=== PATIENT | female | born 1940 | race Caucasian/White ===

== ENCOUNTER → 2016-04-22 | Outpatient (CLI) | payer BC ==
[~2016-04-22] MED LIST: ACET-1256 PO; MULT-506 PO; NAPR1TAB9 PO; SYN100 PO
[2016-04-22 11:00] LABS: BASO % 0.3 %; BASO ABS # 0.02 K/uL (0-0.2); COMPLETE YES; EOS % 7.1 %; HEMATOCRIT 41.7 % (37-47); IG% 0.3 %; LYMPH % 30.7 %; LYMPH ABS # 1.85 K/uL (1.2-3.4); MEAN CORPUSCULAR HEMOGLOBIN 30.3 pg (25-34); MEAN CORPUSCULAR HGB CONC 35.3 g/dl (32-36); MEAN PLATELET VOLUME 12.2 fL (7.4-10.4); NEUT % 52.6 %; PLATELET COUNT 223 K/uL (130-400); RED BLOOD COUNT 4.85 M/uL (4.2-5.4); WHITE BLOOD COUNT 6.03 K/uL (4.8-10.8)
[2016-04-22 11:10] LABS: ALT/SGPT 34 U/L (12-78); AST/SGOT 24 U/L (15-37); BLOOD UREA NITROGEN 23 mg/dl (7-18); BUN/CREATININE RATIO 20.6 (10-20); CALCIUM 8.7 mg/dl (8.5-10.1); CARBON DIOXIDE 26 mmol/L (21-32); CHLORIDE 108 mmol/L (98-107); CHOLESTEROL 250 mg/dl (0-200); GLUCOSE 112 mg/dl (70-99); POTASSIUM 4.2 mmol/L (3.5-5.1); SODIUM 144 mmol/L (136-145)
[2016-04-22 11:24] LABS: ALB/GLOB RATIO 1.2 (0.9-2); ALKALINE PHOSPHATASE 75 U/L (45-117); CHOLESTEROL/HDL RATIO 4.3; HDL CHOLESTEROL 58 mg/dl; LDL CHOLESTEROL CALCULATED 163 mg/dl; THYROID STIMULATING HORMONE 0.606 uIu/ml (0.300-4.500); TRIGLYCERIDES 143 mg/dl (0-150); VERY LOW DENSITY LIPOPROT CALC 29 mg/dl
== END | disposition home or self-care (01) ==
LOC: C.LABBC 08:21
PROVIDERS: ATTEND Internal Medicine
DX: I10 Essential (primary) hypertension (principal); E03.9 Hypothyroidism, unspecified; R26.9 Unspecified abnormalities of gait and mobility

== ENCOUNTER → 2016-08-29 | Outpatient (CLI) | payer BC ==
[2016-08-29 12:43] LABS: ESTIMATED AVERAGE GLUCOSE 108 mg/dl; HA1C FLAG Normal (Normal)
[2016-08-29 13:56] LABS: BLOOD UREA NITROGEN 28 mg/dl (7-18); BUN/CREATININE RATIO 27.9 (10-20); CALCIUM 9.5 mg/dl (8.5-10.1); CARBON DIOXIDE 28 mmol/L (21-32); CHLORIDE 106 mmol/L (98-107); GLUCOSE 102 mg/dl (70-99); POTASSIUM 4.6 mmol/L (3.5-5.1); SODIUM 141 mmol/L (136-145)
== END | disposition home or self-care (01) ==
LOC: C.LAB1850 10:25
PROVIDERS: ATTEND Internal Medicine
DX: I10 Essential (primary) hypertension (principal); R73.9 Hyperglycemia, unspecified

== ENCOUNTER → 2016-09-12 | Outpatient (CLI) | payer BC | END | disposition home or self-care (01) | LOC: C.MAMM 10:22 | PROVIDERS: ATTEND Internal Medicine | DX: Z13.820 Encounter for screening for osteoporosis (principal); M85.851 Other specified disorders of bone density and structure, right thigh ==

== ENCOUNTER → 2016-11-16 | Outpatient (CLI) | payer BC ==
--- NOTE | 2016-11-16 09:06 | DIAGNOSTIC IMAGING REPORT ---
STANDING RADIOGRAPHS OF THE LEFT FOOT CLINICAL HISTORY: Medial left foot pain. COMPARISON: None FINDINGS: Tarsometatarsal joints are intact. There is no acute fracture within the left foot. No suspicious osseous lesion is present. There is moderate arthritis of the left first metatarsophalangeal joint. There is mild left midfoot arthritis within multiple articulations. There is minimal posterior plantar calcaneal spurring. No erosions are identified. IMPRESSION: 1. No acute fracture or dislocation within the left foot. 2. 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 Electronically signed by: Sunil Mesa M.D. 11/16/2016 9:05 AM Dictated Date/Time: 11/16/2016 9:03 AM
== END | disposition home or self-care (01) ==
LOC: C.RDSM 08:47
PROVIDERS: ATTEND Podiatrist
DX: M19.072 Primary osteoarthritis, left ankle and foot (principal)

== ENCOUNTER → 2016-11-23 | Outpatient (CLI) | payer BC ==
--- NOTE | 2016-11-23 13:16 | DIAGNOSTIC IMAGING REPORT ---
CHEST 2 VIEWS ROUTINE CLINICAL HISTORY: Acute upper respiratory infection. COMPARISON STUDY: Chest radiograph June 18, 2007. FINDINGS: Anterior cervical spine fusion is incidentally noted. Lung volumes are normal. Lungs are clear. No pneumothorax or pleural effusion is present. Cardiomediastinal silhouette is normal. There is no evidence of pulmonary edema. There are cholecystectomy clips. IMPRESSION: No acute cardiopulmonary findings. Electronically signed by: Sunil Mesa M.D. 11/23/2016 1:15 PM Dictated Date/Time: 11/23/2016 1:14 PM
[2016-11-23 13:22] LABS: BASO % 0.3 %; BASO ABS # 0.02 K/uL (0-0.2); COMPLETE YES; EOS % 3.2 %; HEMATOCRIT 40.3 % (37-47); IG% 0.3 %; LYMPH ABS # 1.85 K/uL (1.2-3.4); MEAN CELL VOLUME 88.2 fL (80-100); MEAN CORPUSCULAR HEMOGLOBIN 30.6 pg (25-34); MEAN CORPUSCULAR HGB CONC 34.7 g/dl (32-36); MEAN PLATELET VOLUME 11.7 fL (7.4-10.4); MONO % 8.8 %; NEUT % 62.4 %; PLATELET COUNT 277 K/uL (130-400); RED BLOOD COUNT 4.57 M/uL (4.2-5.4); WHITE BLOOD COUNT 7.39 K/uL (4.8-10.8)
[2016-11-23 13:52] LABS: BLOOD UREA NITROGEN 33 mg/dl (7-18); BUN/CREATININE RATIO 27.8 (10-20); CALCIUM 9.1 mg/dl (8.5-10.1); CARBON DIOXIDE 28 mmol/L (21-32); CHLORIDE 104 mmol/L (98-107); GLUCOSE 103 mg/dl (70-99); POTASSIUM 3.8 mmol/L (3.5-5.1); SODIUM 140 mmol/L (136-145)
[2016-11-27 12:05] LABS: LEGIONELLA ANTIGEN NOT DETECTED (NOT DETECTED)
== END | disposition home or self-care (01) ==
LOC: C.RAD1850 12:04
PROVIDERS: ATTEND Internal Medicine
DX: J06.9 Acute upper respiratory infection, unspecified (principal)

== ENCOUNTER → 2016-11-23 | Outpatient (CLI) | payer BC ==
--- NOTE | 2016-11-23 16:56 | DIAGNOSTIC IMAGING REPORT ---
L LOWER EXT NONJOINT W/O CLINICAL HISTORY: 76 years-old Female presenting with left medial foot pain for over one year, no known injury, marker on region of interest, posterior tibial tendinitis, midfoot arthritis. TECHNIQUE: Multisequence, multiplanar MR imaging of the left foot was performed without the use of intravenous contrast. IV contrast: None. COMPARISON: Correlation made to plain radiographs of the left foot from 11/16/2016. FINDINGS: Localizer images: Unremarkable. Degenerative changes of the first metatarsophalangeal joint evidenced by osteophytosis. Trace cystic change noted along the medial juxta articular cortex. Joint space loss noted. No acute fracture. Extensor and flexor compartments demonstrate normal muscle bulk and signal intensity. No abnormal thickening of the plantar fascia. Achilles tendon normal in appearance. No significant infiltration of Kager fat pad. Limited imaging of the ankle demonstrates intact ankle mortise and supporting ligamentous structures. Posterior compartment tendons demonstrate normal tibialis posterior and flexor digitorum longus. Minimal fluid along the tendon of the flexor hallucis longus at the level of the sustentaculum aster. Minimal bony edema along the posterior medial aspect of the medial cuneiform at the insertion of the tibialis anterior. The distal tibialis anterior tendon is slightly thickened and increased in signal intensity suggesting tendinosis. Remaining anterior tendons normal. No focal fluid collection or subcutaneous edema. IMPRESSION: 1. Findings suggestive of tendinosis of the tibialis anterior with minimal reactive bony edema in the medial cuneiform insertion site. 2. Possible minimal tendinitis of the flexor hallucis longus subjacent to the sustentaculum aster. 3. Degenerative changes of the first metatarsophalangeal joint. Electronically signed by: Juan Manuel Valadez M.D. 11/23/2016 4:55 PM Dictated Date/Time: 11/23/2016 4:39 PM
== END | disposition home or self-care (01) ==
LOC: C.MRIBC 15:18
PROVIDERS: ATTEND Podiatrist
DX: M76.822 Posterior tibial tendinitis, left leg (principal); M19.072 Primary osteoarthritis, left ankle and foot; J06.9 Acute upper respiratory infection, unspecified

== ENCOUNTER → 2017-02-08 | Outpatient (CLI) | payer BC ==
--- NOTE | 2017-02-08 14:54 | DIAGNOSTIC IMAGING REPORT ---
R VENOUS DOPP LOWER EXT UNILAT CLINICAL HISTORY: R LEG SWELLING pain. Edema. TECHNIQUE: Venous Doppler COMPARISON STUDY: None FINDINGS: Normal study IMPRESSION: Normal study The above report was generated using voice recognition software. It may contain grammatical, syntax or spelling errors. Electronically signed by: Madhu Andrew M.D. 02/08/2017 2:53 PM Dictated Date/Time: 02/08/2017 2:51 PM
== END | disposition home or self-care (01) ==
LOC: C.ULTR 14:03
PROVIDERS: ATTEND Nurse Practitioner Adult Health
DX: M79.89 Other specified soft tissue disorders (principal)

== ENCOUNTER → 2017-03-14 | Outpatient (CLI) | payer BC ==
--- NOTE | 2017-03-14 12:06 | DIAGNOSTIC IMAGING REPORT ---
L HIP UNILATERAL 2 VIEWS CLINICAL HISTORY: R26.9 Gait disturbance pain COMPARISON: None. DISCUSSION: Moderate degenerative narrowing left hip joint space. No evidence for acetabular protrusion. Several small subchondral cysts of the femoral head and to a lesser extent acetabulum. No abnormal soft tissue calcifications. There is no evidence for soft tissue swelling. IMPRESSION: Moderate degenerative change. No acute process. The above report was generated using voice recognition software. It may contain grammatical, syntax or spelling errors. Electronically signed by: Madhu Andrew M.D. 03/14/2017 12:05 PM Dictated Date/Time: 03/14/2017 12:04 PM
--- NOTE | 2017-03-14 13:28 | DIAGNOSTIC IMAGING REPORT ---
LUMBAR SPINE 5 VIEWS CLINICAL HISTORY: Gait disturbance. FINDINGS: Five views of the lumbar spine are correlated with MRI of lumbar spine dated 03/01/2012. The skeletal structures are osteopenic. There is no radiographic evidence of acute fracture or malalignment. Vertebral body height is maintained throughout the lumbar spine. There is 9 mm of anterolisthesis at L4-L5. Alignment is otherwise preserved. Anterior osteophytes are seen throughout. The transverse and spinous processes appear intact. Bilateral pars defects are suspected at L4. Advanced facet arthropathy is seen in the mid to lower lumbar region. There is advanced disc space narrowing at L5-S1. Moderate disc space narrowing is seen at L4-L5. Mild disc space narrowing is present at the remaining lumbar levels. The bony pelvis is intact as visualized. Sclerotic change is noted in the left sacroiliac joint. Cholecystectomy clips are noted. There is a nonobstructed abdominal bowel gas pattern noting mild to moderate colonic fecal retention. Atherosclerotic calcification is noted in the abdominal aorta. IMPRESSION: 1. No acute bony abnormality is seen involving the lumbar spine. 2. There is Grade I anterolisthesis at L4-L5, likely secondary to bilateral pars defects at L4. 3. Osteopenia and spondylotic change as above. Dictated: 03/14/2017 12:57 PM Transcribed: 03/14/2017 1:28 PM Freddy Electronically signed by: Rojelio Car M.D. 03/14/2017 1:28 PM Dictated Date/Time: 03/14/2017 12:57 PM
== END | disposition home or self-care (01) ==
LOC: C.RAD1850 11:46
PROVIDERS: ATTEND Internal Medicine
DX: R26.9 Unspecified abnormalities of gait and mobility (principal)

== ENCOUNTER → 2017-03-21 | Outpatient (CLI) | payer BC ==
--- NOTE | 2017-03-21 13:00 | DIAGNOSTIC IMAGING REPORT ---
MRI OF THE LUMBAR SPINE WITHOUT CONTRAST CLINICAL HISTORY: Back pain with left-sided radiculopathy. COMPARISON STUDY: Lumbar spine MRI March 01, 2012 and lumbar spine radiograph March 14, 2017. TECHNIQUE: Utilizing a 1.5 Jenn magnet and dedicated coil, multiplanar, multiecho imaging of the lumbar spine was performed without IV contrast. FINDINGS: For purposes of numbering on this exam, the L5-S1 disc space is assigned to axial image 06/22/2016. There is 7 mm anterolisthesis of L4 and L5, likely due to facet arthrosis. No suspicious marrow replacement is present. There is no lumbar spine compression fracture. There is no intracanalicular mass or fluid collection. There is mild dextroscoliosis of the lumbar spine. Conus terminates at the mid L1 level. There are bilateral parapelvic cysts. L1-2: Disc bulge is noted with facet arthrosis. There is no significant central canal or neural foraminal stenosis. L2-3: There is disc space narrowing with facet arthrosis and ligamentous surgery. The central canal, lateral recesses and neural foramen are patent. L3-4: There is mild disc bulge with extensive ligamentous hypertrophy and facet arthrosis. There is moderate narrowing of the right aspect of the canal predominantly due to ligamentous hypertrophy. There is mild narrowing of the left lateral recess and moderate narrowing of the right lateral recess with mild bilateral neural foraminal stenosis. L4-5: There is grade I anterolisthesis with uncovering of the disc, ligamentous hypertrophy and facet arthrosis that result in severe narrowing of the central canal and lateral recesses with mild narrowing of the right neural foramen and mild narrowing of the left neural foramen. These findings have progressed since exam of February 22, 2012. L5-S1: There is disc space narrowing with disc bulge. There are facet arthrosis. The central canal is patent. There is mild during of both lateral recesses with severe narrowing of the right neural foramen and mild narrowing of the left neural foramen. IMPRESSION: 1. Severe central canal stenosis at L4-L5 due to grade I anterolisthesis, ligamentous hypertrophy and facet arthrosis. This has progressed since exam March 01, 2012. 2. Moderate narrowing of the right aspect of the central canal at the L3-L4 level. 3. Severe right neural foraminal stenosis at L5-S1. Electronically signed by: Sunil Mesa M.D. 03/21/2017 12:58 PM Dictated Date/Time: 03/21/2017 12:51 PM
== END | disposition home or self-care (01) ==
LOC: C.MRI 10:39
PROVIDERS: ATTEND Internal Medicine
DX: M48.061 Spinal stenosis, lumbar region without neurogenic claudication (principal); M47.26 Other spondylosis with radiculopathy, lumbar region; M43.16 Spondylolisthesis, lumbar region; M21.70 Unequal limb length (acquired), unspecified site; R26.89 Other abnormalities of gait and mobility; R20.0 Anesthesia of skin; R93.7 Abnormal findings on diagnostic imaging of other parts of musculoskeletal system

== ENCOUNTER → 2017-05-23 | Day surgery (SDC) | payer BC ==
[2017-04-27 09:22] VITALS: Ht 172.7 cm; Wt 85.0 kg
[~2017-05-23] VITALS: Ht 172.7 cm; Wt 85.0 kg
[~2017-05-23] MED LIST changes: -ACET-1256 PO; +CHOL20007 PO; +HYDR25TA4 PO; +IOPAMIDOL INJ 61% 15 ML VIAL ONE; +LEVO100T7 PO; +LIDOCAINE HCL 1% MPF 5 ML VIAL ONE; +OMEG10007 PO; +SODIUM CHLORIDE 0.9% INJ 10 ML VIAL ONE; -SYN100 PO
--- NOTE | 2017-05-23 14:16 | History & Physical Bridge - SC ---
H&P Re-Evaluation Bridge Note: I have examined the patient, reviewed the History & Physical and in the interval since the performance of the History & Physical I have noted the following changes of clinical significance: No changes noted
--- NOTE | 2017-05-23 14:38 | [facility] Post Operative Brief Note ---
Immediate Operative Summary Operative Date May 23, 2017. 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 Katty JONAS Grocery Cashier Surgeon(s) NONE Estimated Blood Loss NONE Findings Consistent with Post-Op Diagnosis Specimens NA Drains None Anesthesia Type Local Complication(s) none Disposition Disposition:
--- NOTE | 2017-05-23 14:39 | Discharge Instructions ---
Discharge Instructions Date of Service May 23, 2017. Visit Reason for Visit: Lumbar Radiculopathy Discharge Discharge Diagnosis / Problem: Left leg pain Discharge Goals Goal(s): Decrease discomfort, Improve function Medications Stopped Medications Name(s): see anticoag comment Activity Recommendations Activity Limitations: resume your previous activity Anesthesia . Post Anesthesia Instructions: If you have had General Anesthesia or IV Sedation: * Do not drive today. * Resume driving when surgeon permits. * Do not make important decisions or sign legal documents today. * Call surgeon for: 1. Temperature elevations greater than 101 degrees F. 2. Uncontrollable pain. 3. Excessive bleeding. 4. Persistent nausea and vomiting. 5. Medication intolerance (nausea, vomiting or rash). * For nausea and vomiting use only clear liquids such as: tea, soda, bouillon until nausea subsides, then gradually increase diet as tolerated. * If you have any concerns or questions, call your surgeon's office. If physician is unavailable and it is an emergency, call 911 or go to the nearest emergency room. . Diet Recommendations Recommended Home Diet: resume previous diet Procedures Procedures Performed: LUMBAR EPIDURAL STEROID INJECTION Pending Studies Studies pending at discharge: no Medical Emergencies . Who to Call and When: Medical Emergencies: If at any time you feel your situation is an emergency, please call 911 immediately. . Non-Emergent Contact Non-Emergency issues call your: Specialist . . "Provider Documentation" section prepared by Morgan Saravia. .
[2017-05-23 14:40] VITALS: TEMP 36.6
[2017-05-23 15:02] VITALS: BP 128/73; PULSE 85; O2SAT 96
--- NOTE | 2017-05-23 15:20 | OPERATIVE REPORT ---
DATE OF OPERATION: 05/23/2017 PREOPERATIVE DIAGNOSIS: Multifactorial L4-L5 stenosis secondary to grade 1 L4-L5 spondylolisthesis with a resulting left lower extremity radiculopathy. POSTOPERATIVE DIAGNOSIS: Same. PROCEDURE: Left paramedian L5-S1 interlaminar epidural steroid injection under fluoroscopic guidance. INDICATIONS: The patient is a 77-year-old white female who is having problems with radicular pain and presents today for an epidural injection to help her with the pain. She has responded somewhat to physical therapy and prednisone medication taper but still has functionally limiting pain. PHYSICAL EXAMINATION: Pleasant female, seated comfortably. She has no issues with forward flexion or extension. Negative seated straight leg raises, intact sensation. CONSENT: Verbal and written consent was obtained from the patient. Risks and benefits were reviewed. Risks include but are not limited to epidural abscess, epidural hematoma, allergic reaction, dural puncture. The patient wishes to proceed. PROCEDURE IN DETAIL: The patient was taken back to the special procedures room of the [facility] where she was maintained in a prone position. Backside was cleansed with Betadine x3 and a dry sterile dressing was applied. Fluoroscope was used to identify the L5-S1 interlaminar space. Overlying skin on the left side was anesthetized with 4 mL of lidocaine 1% with a 25-gauge 1-1/2-inch needle. A 22-gauge 3-1/2-inch Tuohy needle was then directed down toward the interlaminar space. It was advanced under lateral fluoroscopic guidance. Loss of resistance was noted at a depth of 7.5 cm. Isovue-300 contrast 1 mL was injected which demonstrated epidural uptake pattern. She then underwent injection after negative aspiration of 40 mg Depo-Medrol and 4 mL of preservative-free sodium chloride. Injection was well tolerated. DISPOSITION: 1. The patient is taken out into the discharge recovery area where she will be discharged home once discharge criteria have been met. 2. Follow up in the [facility] office in 4 weeks' time. I attest to the content of the Intraoperative Record and any orders documented therein. Any exception s are noted below.
== END | disposition home or self-care (01) ==
LOC: X.SURG 13:20
PROVIDERS: ATTEND Physical Medicine & Rehabilitation
DX: M48.061 Spinal stenosis, lumbar region without neurogenic claudication (principal); M43.16 Spondylolisthesis, lumbar region; M54.16 Radiculopathy, lumbar region; I10 Essential (primary) hypertension; E03.9 Hypothyroidism, unspecified

== ENCOUNTER → 2017-10-12 | Day surgery (SDC) | payer BC ==
[2017-10-02 09:53] VITALS: Ht 172.7 cm; Wt 86.8 kg
[~2017-10-12] VITALS: Ht 172.7 cm; Wt 86.8 kg
[~2017-10-12] MED LIST changes: +DEXAMETHASONE SOD INJ 4 MG/ML VIAL ONE; +GABA-112 PO; -IOPAMIDOL INJ 61% 15 ML VIAL ONE; +PRT/20 PO; -SODIUM CHLORIDE 0.9% INJ 10 ML VIAL ONE
--- NOTE | 2017-10-12 07:51 | Discharge Instructions-SurgCtr ---
Discharge Instructions Date of Service Oct 12, 2017. Visit Reason for Visit: Spinal Stenosis Discharge Discharge Diagnosis / Problem: same Discharge Goals Goal(s): Improve function Activity Recommendations Activity Limitations: resume your previous activity Anesthesia . Post Anesthesia Instructions: If you have had General Anesthesia or IV Sedation: * Do not drive today. * Resume driving when surgeon permits. * Do not make important decisions or sign legal documents today. * Call surgeon for: 1. Temperature elevations greater than 101 degrees F. 2. Uncontrollable pain. 3. Excessive bleeding. 4. Persistent nausea and vomiting. 5. Medication intolerance (nausea, vomiting or rash). * For nausea and vomiting use only clear liquids such as: tea, soda, bouillon until nausea subsides, then gradually increase diet as tolerated. * If you have any concerns or questions, call your surgeon's office. If physician is unavailable and it is an emergency, call 911 or go to the nearest emergency room. . Diet Recommendations Home Diet: no limitations Procedures Procedures Performed: L-45 Epidural Steroid Injection Pending Studies Studies pending at discharge: no Medical Emergencies . Who to Call and When: Medical Emergencies: If at any time you feel your situation is an emergency, please call 911 immediately. . Non-Emergent Contact Non-Emergency issues call your: Primary Care Provider . . "Provider Documentation" section prepared by Mike Hernandez. .
--- NOTE | 2017-10-12 07:52 | [facility] Post Operative Brief Note ---
Immediate Operative Summary Operative Date Oct 12, 2017. Pre-Operative Diagnosis SPINAL STENOSIS Post-Operative Diagnosis SAME PREOP Procedure(s) Performed L-45 Epidural Steroid Injection Surgeon DR. Linda WALTER Supervisor Dairy Sanitation Surgeon(s) NONE Estimated Blood Loss 0 ML Findings Consistent with Post-Op Diagnosis Specimens NONE Anesthesia Type MAC
[2017-10-12 07:59] VITALS: TEMP 36.7
[2017-10-12 08:09] VITALS: BP 133/76; PULSE 71; O2SAT 97
--- NOTE | 2017-10-12 09:10 | OPERATIVE REPORT ---
DATE OF OPERATION: 10/12/2017 PREOPERATIVE DIAGNOSIS: Stenosis and listhesis 4-5 lumbar. POSTOPERATIVE DIAGNOSIS: Same. PROCEDURE: Epidural steroid 4-5 lumbar. DESCRIPTION OF PROCEDURE: The patient was taken to the minor procedure room and placed prone, prepped and draped sterile. The 22-gauge Tuohy needle advanced to the epidural space at L4-5. 2 mL of dexamethasone injected without incident. She tolerated it well. Returned to PACU stable. Discharged home. I attest to the content of the Intraoperative Record and any orders documented therein. Any exception s are noted below.
== END | disposition home or self-care (01) ==
LOC: X.SURG 06:29
PROVIDERS: ATTEND Orthopaedic Surgery Orthopaedic Surgery of the Spine
DX: M48.061 Spinal stenosis, lumbar region without neurogenic claudication (principal); Z85.820 Personal history of malignant melanoma of skin

== ENCOUNTER → 2017-10-25 | Day surgery (SDC) | payer BC ==
[2017-10-02 10:02] VITALS: Ht 172.7 cm; Wt 86.8 kg
[~2017-10-25] VITALS: Ht 172.7 cm; Wt 86.8 kg
[~2017-10-25] MED LIST changes: -DEXAMETHASONE SOD INJ 4 MG/ML VIAL ONE; -LIDOCAINE HCL 1% MPF 5 ML VIAL ONE
== END | disposition home or self-care (01) ==
LOC: EDSTATUS 08:30 → C.PAT 12:30
PROVIDERS: ATTEND Orthopaedic Surgery Orthopaedic Surgery of the Spine
DX: M48.00 Spinal stenosis, site unspecified (principal); Z53.9 Procedure and treatment not carried out, unspecified reason

== ENCOUNTER 2018-06-19 04:49 | Inpatient (IN) ==
--- NOTE | 2018-06-03 09:34 | Anesthesiology Consultation ---
Date of Service June 03, 2018 Assessment & Plan (1) Encounter for pre-operative examination: - PCP= 06/05/18= hx post-op anemia. "patient acceptable risk for surgical intervention." "High blood pressure fluctuating [BP 140/90 at this office visit]..patient is aware BP may be elevated prior to surgery- discussed options giving oral medication as Norvasc 10mg.. but she declined.. she may need to have IV medication for relaxation purposes and BP control prior to surgery." BP was 138/77 at PAT visit on 06/03/18.* Chart Review Chart Review: Acceptable Risk for Surgery (pending evaluation of clinical status AM DOS) and Patient seen in Pre Admission Testing Teaching & Discussion Pre-Anesthesia Teaching/Discussion Notes: Instructed NPO after midnight before surgery,except medications with 15 cc of water. Medication instructions provided according to the [facility] guidelines. History Surgery Operation Date: 06/19/18 10:00 Proposed Procedures p Left Total Hip Arthroplasty - Nishant Gamboa MD Height/Weight Height: 5 ft 8 in Weight: 85.6 kg Allergies Allergy/AdvReac Type Severity Reaction Status Date / Time acetaminophen Allergy Severe HIVES Verified 05/28/18 14:30 Medications Home Medications Medication Instructions Recorded Confirmed Last Taken hydrochlorothiazide 25 mg PO QAM 03/01/18 05/28/18 Unknown levothyroxine 100 mcg PO QAM 03/01/18 05/28/18 Unknown naproxen sodium [Aleve] 220 mg PO BID PRN 03/01/18 05/28/18 Unknown cholecalciferol (vitamin D3) 2,000 unit PO QAM 05/28/18 05/28/18 Unknown [Vitamin D3] [id number]-lutein 1 tab PO QAM 05/28/18 05/28/18 Unknown [Centrum Silver] Past Medical History Medical History Cancer BCC, MELANOMA, SCC Chronic back pain Degenerative disc disease History of blood transfusion POST-OP KNEE SURGERY Hypertension Hypothyroidism Osteoarthritis Past Family History Family History Mother Family history of diabetes mellitus Other No pertinent family history in first degree relatives Past Surgical History Surgical History Fusion of spine ACDF C4-C5 History of adenoidectomy History of appendectomy History of cataract surgery BILATERAL History of colonoscopy History of dilatation and curettage History of hysterectomy SWATI WITH BSO History of thyroidectomy, subtotal 2/2 THYROID NODULE History of tonsillectomy History of total knee replacement BILATERAL Hx of cholecystectomy Status post Mohs surgery Past Anesthesia History No Hx of Anesthesia Complications and No Family Hx of Anesthesia Complications History of PONV No Motion Sickness Screening History of Motion Sickness: No Social History Smoking Status: Former smoker tobacco type: cigarettes Do You Dip or Chew Tobacco: No Smoking End Date: QUIT 1984; HX 2PPD X 20 YEARS Hx Alcohol Use: Yes Alcohol type: wine alcohol intake frequency: 0-2 drinks per day (1 GLASS WINE/DAY) Hx Substance Use: No substance use type: does not use Exercise / Class Metabolic Activity III < 4 Walking/Shop/Light housework Review of Systems Patient denies chest pain, shortness of breath, cough, wheezing, palpitations. Physical Exam Vital Signs VITALS BP 138/77 P 80 TEMP 97.7 SP02 99%RA RESP 18 PHYSICAL Full neck and c-spine range of motion. Full TMJ range of motion. TMD 4 finger breaths Mallampati Score 2 Dentition: partial on upper Lungs: clear throughout to auscultation Cardiac: regular rate and rhythm, no murmurs noted Spine: normal Carotid arteries: negative bruit Extremities: no edema Testing Electrocardiogram Date: 06/03/18 Findings: + NSR @ (72) Chest X-Ray Date: 06/03/18 Findings: + NAD Atherosclerosis of the aortic arch. Laboratory Results 06/03/18 10:02 06/03/18 10:00 Blood Type A Positive 06/03/18 10:02 Antibody Screen NEGATIVE 06/03/18 10:02 PT 10.0 Seconds (9.0-12.0) 06/03/18 10:02 INR 1.0 (0.9-1.1) 06/03/18 10:02 APTT 23.9 Seconds (21.0-31.0) 06/03/18 10:02 Urine Color Dark Yellow 06/03/18 10:02 Urine Appearance Clear (Clear) 06/03/18 10:02 Urine pH 5.0 (4.5-7.5) 06/03/18 10:02 Ur Specific [place] 1.027 (1.000-1.030) 06/03/18 10:02 Urine Protein Negative (Negative) 06/03/18 10:02 Urine Glucose (UA) Negative (Negative) 06/03/18 10:02 Urine Ketones Negative (Negative) 06/03/18 10:02 Urine Nitrite Negative (Negative) 06/03/18 10:02 Ur Leukocyte Esterase Negative (Negative) 06/03/18 10:02
--- NOTE | 2018-06-03 09:45 | PAT Medication Instructions ---
Medication Instructions Date of Service June 03, 2018 Home Medications hydrochlorothiazide 25 mg PO QAM levothyroxine 100 mcg PO QAM naproxen sodium [Aleve] 220 mg PO BID PRN cholecalciferol (vitamin D3) 2,000 unit PO QAM Centrum silver 1 tab PO QAM ASK your surgeon for instructions naproxen sodium [Aleve] 220 mg PO BID PRN STOP taking 2 weeks before surgery (or as soon as possible if surgery is within 2 weeks) Centrum silver 1 tab PO QAM DO NOT take the morning of surgery hydrochlorothiazide 25 mg PO QAM cholecalciferol (vitamin D3) 2,000 unit PO QAM Take morning of surgery With a small sip of water, OTHERWISE NOTHING TO EAT OR DRINK AFTER MIDNIGHT: levothyroxine 100 mcg PO QAM Other Notes If you have any questions please call us at [phone] or [phone] or [phone] or [phone]
--- NOTE | 2018-06-03 10:28 | XRay Report ---
XR chest Pre-admission PA/Lat CLINICAL HISTORY: 78 years-old Female presenting with preoperative assessment. TECHNIQUE: PA and lateral views of the chest were obtained. COMPARISON: . FINDINGS: Atherosclerosis of the aortic arch. Cardiac silhouette normal in size. Lungs and pleural spaces clear . Degenerative changes of the thoracic spine. Cholecystectomy clips noted. Anterior cervical fusion h ardware noted. IMPRESSION: 1. No acute cardiopulmonary disease. Electronically signed by: Juan Manuel Valadez M.D. 06/03/2018 10:26 AM
[2018-06-03 10:48] LABS: Basophils # (auto) 0.04 K/uL (0-0.2); Basophils % (auto) 0.5 %; Eosinophils # (auto) 0.18 K/uL (0-0.5); Eosinophils % (auto) 2.1 %; Hematocrit (blood only) 40.2 % (37-47); Hemoglobin 13.8 g/dL (12.0-16.0); Immature Granulocytes # (auto) 0.02 K/uL (0.00-0.02); Immature Granulocytes % (auto) 0.2 %; Lymphocytes # (auto) 1.26 K/uL (1.2-3.4); Lymphocytes % (auto) 14.8 %; Mean Corpuscular Hgb Conc 34.3 g/dL (32-36); Mean Corpuscular Volume 85.9 fL (80-100); Mean Platelet Volume 11.6 fL (7.4-10.4); Monocytes # (auto) 0.57 K/uL (0.11-0.59); Monocytes % (auto) 6.7 %; Neutrophils # (auto) 6.42 K/uL (1.4-6.5); Neutrophils % (auto) 75.7 %; Platelet Count 222 K/uL (130-400); RDW Coefficient of Variation 13.6 % (11.5-14.5); RDW Standard Deviation 42.7 fL (36.4-46.3); Red Blood Count 4.68 M/uL (4.2-5.4); White Blood Count 8.49 K/uL (4.8-10.8)
[2018-06-03 11:00] LABS: Partial Thromboplastin Ratio 0.9; Partial Thromboplastin Time 23.9 Seconds (21.0-31.0)
[2018-06-03 11:13] LABS: BUN Creatinine Ratio 35.4 (10-20); Calcium 9.2 mg/dl (8.5-10.1); Creatinine Clr Calc Pharmacy 54.1 ml/min; Est GFR (African American) 65.6; Est GFR (Non-African American) 56.6; Potassium 3.9 mmol/L (3.5-5.1)
[2018-06-03 13:07] LABS: Appearance Urine Clear (Clear); Bilirubin Urine Negative (Negative); Blood Urine Negative (Negative); Color Urine Dark Yellow; Glucose Urine UA Negative (Negative); Ketones Urine Negative (Negative); Leukocyte Esterase Urine Negative (Negative); Nitrite Urine Negative (Negative); Protein Urine Negative (Negative); Specific Gravity Urine 1.027 (1.000-1.030); Urobilinogen Urine Negative (Negative)
--- NOTE | 2018-06-06 13:26 | History and Physical Report ---
DATE OF ADMISSION: 06/19/2018 CHIEF COMPLAINT: Left hip pain. HISTORY OF PRESENT ILLNESS: This 78-year-old white female presents for evaluation of her left hip. She has a longstanding history of left hip pain. It has been ongoing for several years. It has become worse with time. She initially thought it was coming from her back. Evaluation last summer revealed her hip to be involved. She has difficulty with ambulation. Pain is worse with weightbearing. She has difficulty with ADLs. No numbness or tingling. She has tried activity modification, oral anti-inflammatories, and intraarticular cortisone injection without lasting improvement. X-ray and MRI have been obtained. She elects to proceed with left total hip arthroplasty in hopes of alleviating her pain. 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 PAST SURGICAL HISTORY: Total knee arthroplasties in 2007, extensive punch biopsies and shave biopsies, Mohs surgery in 2017 and 2018. ALLERGIES: ACETAMINOPHEN, WHICH CAUSES HIVES. CURRENT MEDICATIONS: Centrum vitamin daily, vitamin D3 daily, HCTZ 25 mg p.o. daily, Naprosyn 220 mg p.o. b.i.d., Nasonex nasal spray 2 sprays in each nostril daily, Synthroid 100 mcg p.o. daily, Zantac 150 mg p.o. daily. FAMILY HISTORY: Noncontributory. Parents are . SOCIAL HISTORY: The patient is . Retired. No tobacco use. Daily ETOH use. REVIEW OF SYSTEMS: A total of 10 systems are reviewed and are significant only for the above-stated conditions. PHYSICAL EXAMINATION: GENERAL: Well-developed, well-nourished elderly white female in no acute distress. Sitting on the bed. Alert and oriented. SKIN: Warm and dry with good turgor. No rashes or lesions. No ecchymosis or erythema. HEENT: Normocephalic, atraumatic. Eyes PERRLA, EOMI. Nares patent bilaterally without turbinate enlargement. Oropharynx without erythema or exudate. No lesions noted. Uvula midline. Oral mucosa moist. Fair dentition. Caps and fillings are noted. HEART: RRR. No MGR. LUNGS: Clear to auscultation bilaterally. No crackles, rhonchi or wheezing. Good air movement. ABDOMEN: Obese. Bowel sounds present x4, soft, nontender. No organomegaly. No masses. MUSCULOSKELETAL: Left hip evaluation reveals no obvious asymmetry or deformity. She has limited range of motion of the hip secondary to pain. Hip flexion to around 90 degrees, external rotation around 25 degrees. Internal rotation just beyond neutral. These are limited by pain. No pain with palpation over the IT band or greater trochanter. Intact motor function of the knee and ankle. NEUROLOGIC: Cranial nerves II through XII are intact. Gross sensation is intact across the left lower extremity by soft touch. Peripheral pulses are 2+. DATA: Radiographic imaging previously obtained shows joint space narrowing, subchondral cyst formation, and periarticular osteophytes of the left hip. Previous MRI shows degenerative joint disease and subchondral marrow edema in both the acetabular and femoral sides. IMPRESSION: Left hip end-stage degenerative joint disease. PLAN: Postoperative prescription for oxycodone IR and Coumadin will be provided at discharge from the hospital. Anticipate discharge to home with either home health services or outpatient PT. She already has access to a walker and cane. Medical clearance with her PCP has been scheduled. Preoperative lab work, EKG, and chest x-ray were ordered today. She will see PAT today. The patient was inquiring about traveling to [place] to a [place] home. She may safely do this in 6-8 weeks after surgery that she is aware of. Informed written consent to proceed with left total hip arthroplasty will be obtained on the morning of surgery. RAVEN
[2018-06-19] MEDS ORDERED: CEFAZOLIN 2000MG 2,000 MG/15 ML SYR IV SCH (06:00)
[2018-06-19] MEDS ORDERED: ROPIVACAINE 0.5% HCL/PF 150 MG, BUPIVACAINE 0.5% MPF 30 ML, EPINEPHrine 0.15 MG, Ketoro... INFIL SCH (06:00)
[2018-06-19] MEDS ORDERED: LR 60ML/HR IV SCH (06:00)
[2018-06-19] MEDS ORDERED: TRANEXAMIC ACID 1,000 MG **IV Pre-op IV SCH (06:00)
[2018-06-19] MEDS ORDERED: LR 500ML BOLUS, THEN 15ML/HR IV SCH (06:00)
[2018-06-19] MEDS ORDERED: BUPIVACAINE 0.5 % 5 MG/1 ML PF 10ML VIAL ONE (06:29)
[2018-06-19] MEDS ORDERED: POVIDONE-IODINE OP SOLN 30 ML BTL ONE (06:36)
[2018-06-19] MEDS ORDERED: ORTHO JOINT ANESTHETIC ONE (06:36)
--- NOTE | 2018-06-19 06:36 | History & Physical Bridge Note ---
Date of Service June 19, 2018 History & Physical Bridge Note I have examined the patient, reviewed the History & Physical and in the interval since the performance of the History & Physical I have noted the following changes of clinical significance: consent obtained.no changes noted
[2018-06-19] MEDS ORDERED: fentaNYL citrate 100 MCG/2 ML VIAL ONE (06:42)
[2018-06-19] MEDS ORDERED: MIDAZOLAM HCL 1 MG/ML 2ML VIAL ONE (06:42)
[2018-06-19] MEDS ORDERED: PROPOFOL IV EMULSION 10 MG/ML 20 ML VIAL IV ONE (06:42)
[2018-06-19] MEDS ORDERED: ePHEDrine sulfate 50 MG/ML AMP IV PRN (07:33)
[2018-06-19] MEDS ORDERED: PHENYLEPHRINE 100MCG/ML 5ML SYR IV PRN (07:33)
[2018-06-19] MEDS ORDERED: ATROPINE SULFATE 0.1 MG/ML 10ML SYR IV PRN (07:33)
[2018-06-19] MEDS ORDERED: fentaNYL citrate 100 MCG/2 ML VIAL IV PRN (07:33)
[2018-06-19] MEDS ORDERED: LABETALOL HCL IV 5 MG/ML 20ML IV PRN (07:33)
[2018-06-19] MEDS ORDERED: ONDANSETRON INJ 2 MG/ML 2 ML VIAL IV PRN ×2 (07:33→09:59)
[2018-06-19] MEDS ORDERED: HYDROmorphone INJ 1 MG/ML SYRINGE IV PRN (07:33)
[2018-06-19] MEDS ORDERED: ONDANSETRON INJ 2 MG/ML 2 ML VIAL ONE (08:15)
[2018-06-19] MEDS ORDERED: PHENYLEPHRINE HCL 10 MG/ML VIAL ONE ×2 (08:15)
[2018-06-19] MEDS ORDERED: ePHEDrine sulfate 50 MG/ML SYR ONE (08:15)
--- NOTE | 2018-06-19 08:25 | Post Operative Brief Note ---
Immediate Post Op Note v1 Date of Surgery June 19, 2018 Pre & Post Diagnosis Operation Date: 06/19/18 07:00 Pre-Op Diagnosis: Left Hip End-Stage Degenerative Joint Disease Post-Op Diagnosis: Left Hip End-Stage Degenerative Joint Disease Procedure Operation Date: 06/19/18 07:00 Actual Procedures p Left Total Hip Arthroplasty--Uncemented(Left) - Nishant Gamboa MD Surgeon Nishant Gamboa MD [employer] [facility] Blood Loss 200 Findings Consistent with Post-Op Diagnosis
--- NOTE | 2018-06-19 08:29 | Operative Report ---
Post Operative Report Pre & Post Diagnosis Operation Date: 06/19/18 07:00 Pre-Op Diagnosis: Left Hip End-Stage Degenerative Joint Disease Post-Op Diagnosis: Left Hip End-Stage Degenerative Joint Disease Procedure Operation Date: 06/19/18 07:00 Actual Procedures p Left Total Hip Arthroplasty--Uncemented(Left) - Nishant Gamboa MD Surgeon ED Gamboa MD Insulation Nozzleman sonny Estimated Blood Loss 200 Findings Consistent with Post-Op Diagnosis Specimens see operative report Drains none Complications none Disposition Accompanied Patient To Recovery: Yes Disposition: Recovery Room Indications This 78-year-old white female presented to the was with complaints of intractable left hip pain. She had tried conservative care measures including activity modification and pain medication without improvement. She elected to proceed with surgical intervention after being educated about potential risks and outcomes. Preoperative imaging was obtained. Description of Procedure Patient was administered a spinal anesthetic and was then taken to the operating room where she was given sedation. She was prepped and draped in the usual sterile fashion. Please see Dr. Gamboa's operative report for specifics of the procedure. I was present for the entire case from initial patient positioning through final wound closure. Assistance was provided in tissue retraction, hemostasis, trial implant placement, final implant placement, and final wound closure. Patient was taken to the recovery room in satisfactory condition. I attest to the content of the Intraoperative Record and any orders documented therein. Any exceptions are noted below.
--- NOTE | 2018-06-19 08:58 | Operative Report ---
DATE OF OPERATION: 06/19/2018 SURGEON: Nishant Gamboa MD ROLL OFF DRIVER: Cong Malik PA-C. No resident or fellow available. PREOPERATIVE DIAGNOSIS: Osteoarthritis, left hip. POSTOPERATIVE DIAGNOSIS: Osteoarthritis, left hip. OPERATION PERFORMED: Noncemented left total hip replacement. SUMMARY OF IMPLANTS: Size 48 acetabular shell sector cup, cancellous screw 6.5 x 25, acetabular liner 32 x 48 neutral, femoral stem, 4 high offset Tri-Lock taper Articul/Anthony head size 32+1. ESTIMATED BLOOD LOSS: 200 mL. CRYSTALLOID: Per anesthesia. DVT prophylaxis will be with Coumadin. Pathology pending on bone. PERIOPERATIVE SITUATION: Medically cleared female with intractable hip pain with x-rays revealing end-stage hip disease with marked joint space narrowing, and significant marginal osteophytes on the femur. At this point in time, wants to proceed with surgical treatment. She has failed conservative management. She notes that when off her Naprosyn for the last week, she was miserable. DESCRIPTION OF PROCEDURE: The patient appropriately identified, site verified, consent verified. Antibiotics confirmed as being given. The left lower extremity was prepped and draped in usual routine fashion with the patient in the right lateral decubitus position. Her leg lengths were slightly asymmetric with the right being about 3 mm long post-surgery. She was approximately a cm long. Once prepped and draped in usual routine fashion, a posterior approach to the hip was made. Sharp dissection carried through skin and blunt dissection down to the fascia. This was then incised under direct vision. The gluteus gretchen fascia and IT band fascia was then split. Retractors placed with care taken to protect the sciatic nerve. There was significant subcutaneous tissue. The fat was then swept off the capsule and the external rotators. The external rotators were then released. The capsule was then T'd and the hip was dislocated. The femoral neck resected. There was a deformity to the femoral neck from osteophytes. These were not trimmed and left alone in the area of the cut in order to minimize any type of stress reaction. The acetabular retractor was placed anteriorly and then the acetabular tried to place posteriorly and superiorly. Excellent exposure obtained. There was significant labral degeneration with tearing and inversion into the anterior part of the hip. This was all excised. There was a very hypertrophic pulvinar with very vascular tissue. This was cauterized. Once it was removed, there was 1 small bleeder that accounted for most of the bleeding from this area. This required a fair amount of cautery to get it to diminish. It was more of an osseous, interosseous bleeder. This was then controlled. Once this was done, the reaming was then carried up to a size 48 cup impacted into appropriate anteversion and inclination. A trial liner was then seated. The femur was then flexed and internally rotated in the room and the retractor placed. The proximal femur prepared with the rongeur dye box operator, lateralizing rasp, canal finder and then serial broaching up to a size 4. The size 4 fit extremely well with about 2 mm of protrusion of the stem from the canal. Trial reduction was carried out with a standard and then a high offset. The high offset gave excellent stability without lengthening the leg. The leg was already slightly long, so we then wanted to lengthen the leg if we could avoid it with the +1 head. It was roughly 0.5 cm to 1 cm long. The hip stability was excellent, so this was accepted as an excellent position of the leg. The trial implants were then removed after the hip was redislocated. The trial liner removed. The hip irrigated with Betadine and the hole eliminator seated, the permanent liner seated, the permanent stem seated and then the position was the same, so the drill head was placed and the hip reduced. The hip stability was excellent in both extension, external rotation, adduction and flexion to 90 degrees, internal rotation of over 55 degrees. Again, the leg lengths were anywhere from 5-10 mm in length, asymmetry. The wound was then irrigated one final time with Betadine and Pulsavac and closed with the external rotators and the capsule closed with #2 Vicryl. The fascia closed with the same stitch, deep fat with the same stitch, superficial fat and subcutaneous tissue with 2-0 Vicryl and stainless steel clips for skin. Appropriate dressing applied. The patient transferred to recovery room in satisfactory condition having tolerated the procedure well. I attest to the content of the Intraoperative Record and any orders documented therein. Any exception s are noted below.
--- NOTE | 2018-06-19 09:06 | XRay Report ---
XR pelvis 1-2V routine CLINICAL HISTORY: Postoperative evaluation. COMPARISON: Pelvis and bilateral hip radiographs April 01, 2016. FINDINGS: Alignment of the total left hip arthroplasty is anatomic. There is no periprosthetic fract ure or unexpected radiopaque foreign body. There are skin andre. There is an acetabular screw. IMPRESSION: Expected findings following total left hip arthroplasty. Electronically signed by: Sunil Mesa M.D. 06/19/2018 9:04 AM
--- NOTE | 2018-06-19 09:25 | Anesthesiology Progress Note ---
Date of Service June 19, 2018 Anesthesia Post Procedure Vital Signs Vital Signs: Temp Pulse Pulse Resp BP Pulse Ox 06/19/18 09:15 81 16 111/58 L 97 06/19/18 09:05 36.4 C L 89 16 97/61 L 97 06/19/18 08:55 80 16 106/55 L 98 06/19/18 08:45 82 16 101/53 L 97 06/19/18 08:35 80 16 105/57 L 97 06/19/18 08:28 36.2 C L 75 14 131/60 100 06/19/18 05:52 36.7 C 95 H 20 141/92 H 99 Pain Intensity Left Hip: Pain Intensity: 2 Notes Mental Status: alert / awake / arousable Patient Amnestic to Procedure: Yes Nausea / Vomiting: adequately controlled Pain: adequately controlled Airway Patency, RR, SpO2: stable & adequate BP & HR: stable & adequate Hydration State: stable & adequate Neuraxial Anesthesia: was administered and sensory block is resolving Anesthetic Complications: no major complications apparent and Pt Satisfied with anesthetic care
[2018-06-19] MEDS ORDERED: ALUMINUM/MAGNESIUM SUSP 30 ML UDC PO PRN (09:59)
[2018-06-19] MEDS ORDERED: DiphenhydrAMINE HCL 50 MG/ML VIAL IV PRN (09:59)
[2018-06-19] MEDS ORDERED: NALOXONE HCL 0.4 MG/1 ML VIAL/CARP IV PRN (09:59)
[2018-06-19] MEDS ORDERED: BISACODYL 10 MG SUPP PR PRN (09:59)
[2018-06-19] MEDS ORDERED: HYDROmorphone INJ 0.5 MG/0.5 ML SYR IV PRN (09:59)
[2018-06-19] MEDS ORDERED: SODIUM CHLORIDE 0.9% 1000ML 1,000 ML IV SCH (09:59)
[2018-06-19] MEDS ORDERED: MAGNESIUM HYDROXIDE SUSP 30 ML UDC PO PRN (09:59)
[2018-06-19] MEDS ORDERED: METOCLOPRAMIDE HCL INJ 5 MG/ML 2 ML VIAL IV PRN (09:59)
[2018-06-19] MEDS ORDERED: OXYCODONE HCL IR 5 MG TAB (IMMEDIATE RELEASE) PO PRN (09:59)
[2018-06-19] MEDS: ORTHO WARFARIN NOMOGRAM SCH (10:49)
[2018-06-19] MEDS: DOCUSATE SODIUM 100 MG CAP PO SCH ×2 (10:52→20:19)
[2018-06-19] MEDS: MULTIVITAMIN TAB PO SCH (10:53)
[2018-06-19] MEDS: hydroCHLOROthiazide 25 MG TAB PO SCH (10:53)
[2018-06-19] MEDS: LEVOTHYROXINE SODIUM 100 MCG TABLET PO SCH (10:54)
[2018-06-19] MEDS: KETOROLAC TROMETHAMINE 15 MG/ML VIAL IV SCH ×3 (11:46→22:54)
--- NOTE | 2018-06-19 12:38 | Progress Note ---
DATE: 06/19/2018 SUBJECTIVE: Postop check, status post left total hip replacement. The patient is doing well. Denies chest pain, shortness of breath, fever, chills, nausea, vomiting, or headache. She is sitting up in bed. She ate some food. OBJECTIVE: Vital signs are stable. She is afebrile. Neurovascular check femoral sciatic nerve is intact on the left leg which was the operative side, still a bit sluggish on the right side. Hip dressing clean, dry and intact. Neurovascular check is given as noted. X-ray AP pelvis and hips reveals well fixed, well aligned hip replacement. ASSESSMENT: Overall, doing well. Plan is to continue to mobilize. Hep-Lock IV and get case management involved for discharge tomorrow.
[2018-06-19] MEDS: CEFAZOLIN 2000MG 2,000 MG/15 ML SYR IV SCH ×2 (14:24→22:54)
[2018-06-19] MEDS ORDERED: TRANEXAMIC ACID 1,000 MG in 0.9 % SODIUM CHLORIDE 100 ML IV SCH (14:30)
[2018-06-19] MEDS ORDERED: WARFARIN SOD 5 MG TAB PO SCH (16:00)
[2018-06-19] MEDS: FERROUS GLUCONATE 324 MG TAB PO SCH (18:02)
[2018-06-19] MEDS: TRAMADOL HCL 50 MG TABLET PO PRN (20:19)
[2018-06-19] MEDS ORDERED: SENNA 8.6 MG TAB PO SCH (21:00)
[2018-06-20] MEDS: TRAMADOL HCL 50 MG TABLET PO PRN (00:25)
[2018-06-20 02:34] VITALS: TEMP 97.9
[2018-06-20] MEDS: LEVOTHYROXINE SODIUM 100 MCG TABLET PO SCH (05:15)
[2018-06-20] MEDS: KETOROLAC TROMETHAMINE 15 MG/ML VIAL IV SCH (05:16)
[2018-06-20 06:11] LABS: Basophils # (auto) 0.01 K/uL (0-0.2); Basophils % (auto) 0.1 %; Eosinophils # (auto) 0.07 K/uL (0-0.5); Eosinophils % (auto) 0.8 %; Hematocrit (blood only) 33.1 % (37-47); Immature Granulocytes # (auto) 0.03 K/uL (0.00-0.02); Immature Granulocytes % (auto) 0.4 %; Lymphocytes # (auto) 1.31 K/uL (1.2-3.4); Lymphocytes % (auto) 15.3 %; Mean Corpuscular Hgb Conc 33.2 g/dL (32-36); Mean Platelet Volume 11.5 fL (7.4-10.4); Monocytes # (auto) 0.83 K/uL (0.11-0.59); Monocytes % (auto) 9.7 %; Neutrophils # (auto) 6.32 K/uL (1.4-6.5); Neutrophils % (auto) 73.7 %; Platelet Count 173 K/uL (130-400); RDW Coefficient of Variation 13.4 % (11.5-14.5); RDW Standard Deviation 43.2 fL (36.4-46.3); Red Blood Count 3.76 M/uL (4.2-5.4); White Blood Count 8.57 K/uL (4.8-10.8)
[2018-06-20 06:38] LABS: BUN Creatinine Ratio 27.7 (10-20); Calcium 8.1 mg/dl (8.5-10.1); Creatinine Clr Calc Pharmacy 53.3 ml/min; Est GFR (African American) 65.6; Est GFR (Non-African American) 56.6; Potassium 4.1 mmol/L (3.5-5.1)
[2018-06-20 06:52] LABS: Prothrombin Time 10.5 Seconds (9.0-12.0)
--- NOTE | 2018-06-20 07:23 | Progress Note ---
DATE: 06/20/2018 SUBJECTIVE: Postop day #1 status post left total hip replacement. The patient did well overnight, had some minor difficulty sleeping just based on being restless, but pain is well managed. She denies any chest pain, shortness of breath, fever, chills, nausea, vomiting, or headache. OBJECTIVE: Vital signs are stable. She is afebrile. Neurovascular check, femoral sciatic nerve is normal. Wound dressing clean, dry and intact. supple range of motion of the hip. She was able to get up, walk around, go to the bathroom, etc. A.m. labs look excellent. Hematocrit is 33.1. INR is pending. PRP is good. ASSESSMENT AND PLAN: Doing well status post left total hip replacement, discharge home today after PT, OT. Case management, arrange for home health with nursing and blood draws only, no PT. Discharged on 4 mg Coumadin if INR is 1.5 or less, 2 mg if INR is 1.6-2.0 and 0 mg if INR is greater than 2. Follow up in 2 weeks for staple removal. RAVEN
[2018-06-20 07:24] VITALS: BP 100/61
--- NOTE | 2018-06-20 07:25 | Discharge Summary ---
CHIEF COMPLAINT: Left hip pain. HISTORY OF PRESENT ILLNESS: The patient is an 78-year-old female admitted for elective left total hip replacement. Her hospital course has been uneventful. She is well managed pain. She is ambulatory. She is eating and drinking. She will be discharged today after PT, OT. 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 PAST SURGICAL HISTORY: Remarkable for total knee arthroplasties, punch biopsies, Mohs surgery ALLERGIES: ACETAMINOPHEN, WHICH CAUSES HIVES. PREADMISSION MEDICATIONS: Include Centrum, vitamin D, hydrochlorothiazide, Naprosyn, Nasonex, Synthroid, and Zantac. She will continue to take all of those. She will add Coumadin to keep INR 1.8-2.2. She has difficulty with any narcotics with nausea and has difficulty with Tylenol for hives, so she will use Aleve. FAMILY HISTORY: Noncontributory. Parents are . SOCIAL HISTORY: Reveals she is , retired. No tobacco use. Daily alcohol use. REVIEW OF SYSTEMS: Noncontributory. ASSESSMENT: Overall, doing well status post left total hip replacement. Postoperative x-rays look excellent. Can be weightbearing as tolerated. Postural indiscretion precautions. Discharge to home today with home health for nursing and blood draws, no PT. Follow up in 2 weeks for staple removal. Discharge on Coumadin as noted per protocol.
--- NOTE | 2018-06-20 07:55 | Anesthesiology Progress Note ---
Date of Service June 20, 2018 Anesthesia Post Procedure Vital Signs Vital Signs: Temp Pulse Pulse Resp BP Pulse Ox 06/20/18 07:23 36.6 C 72 16 100/61 97 06/20/18 02:13 36.6 C 84 16 115/73 97 06/19/18 22:54 36.7 C 78 16 114/67 97 06/19/18 20:24 36.4 C L 88 18 111/65 94 06/19/18 15:19 36.5 C 91 H 18 132/81 96 06/19/18 13:22 36.4 C L 83 16 120/74 97 06/19/18 11:30 36.4 C L 91 H 16 97/61 L 97 06/19/18 10:34 84 16 107/64 99 06/19/18 10:03 74 16 103/64 99 06/19/18 09:25 36.4 C L 79 16 97/58 L 94 06/19/18 09:15 81 16 111/58 L 97 06/19/18 09:05 36.4 C L 89 16 97/61 L 97 06/19/18 08:55 80 16 106/55 L 98 06/19/18 08:45 82 16 101/53 L 97 06/19/18 08:35 80 16 105/57 L 97 06/19/18 08:28 36.2 C L 75 14 131/60 100 Pain Intensity Left Hip: Pain Intensity: 3 Notes Mental Status: alert / awake / arousable and participated in evaluation Patient Amnestic to Procedure: Yes Nausea / Vomiting: adequately controlled Pain: adequately controlled Airway Patency, RR, SpO2: stable & adequate BP & HR: stable & adequate Hydration State: stable & adequate Neuraxial Anesthesia: was administered and sensory block resolved Anesthetic Complications: no major complications apparent and Pt Satisfied with anesthetic care
[2018-06-20] MEDS ORDERED: dexAMETHasone 10 MG in SYRINGE 0 ML IV SCH (08:00)
[2018-06-20 08:27] VITALS: PULSE 84
[2018-06-20] MEDS ORDERED: WARFARIN SOD 5 MG TAB PO ONE (08:30)
[2018-06-20] MEDS: DOCUSATE SODIUM 100 MG CAP PO SCH (08:39)
[2018-06-20] MEDS: FERROUS GLUCONATE 324 MG TAB PO SCH (08:39)
[2018-06-20] MEDS: MULTIVITAMIN TAB PO SCH (08:40)
[2018-06-20] MEDS: hydroCHLOROthiazide 25 MG TAB PO SCH (08:40)
[2018-06-20] MEDS: ORTHO WARFARIN NOMOGRAM SCH (08:46)
[2018-06-20 13:39] VITALS: O2SAT 96
== END 2018-06-20 11:36 | disposition home health service (06) | DRG 470 ==
LOC: ASU 04:49 → 3E 09:28

== ENCOUNTER 2019-05-14 08:17 | Observation (INO) ==
--- NOTE | 2019-04-17 12:13 | PAT Medication Instructions ---
Medication Instructions Date of Service April 17, 2019 Home Medications Medication Instructions Recorded hydrochlorothiazide 25 mg tablet 25 mg PO QAM #30 tab 11/25/18 famotidine 20 mg tablet 20 mg PO DAILY #30 tab 02/20/19 levothyroxine 100 mcg PO QAM Centrum Silver 1 tab PO QAM cholecalciferol (vitamin D3) [Vitamin D3] 2,000 unit PO QAM amoxicillin 500 mg tablet 500 mg PO UD PRN loratadine 10 mg tablet 10 mg PO Q24H PRN hydrochlorothiazide 25 mg tablet 25 mg PO QAM famotidine 20 mg tablet 20 mg PO DAILY naproxen sodium [Aleve] 220 mg PO BID PRN Continue as directed amoxicillin 500 mg tablet 500 mg PO UD PRN (if needed) ASK your surgeon for instructions naproxen sodium [Aleve] 220 mg PO BID PRN DO NOT take the morning of surgery Centrum Silver 1 tab PO QAM cholecalciferol (vitamin D3) [Vitamin D3] 2,000 unit PO QAM loratadine 10 mg tablet 10 mg PO Q24H PRN hydrochlorothiazide 25 mg tablet 25 mg PO QAM Take morning of surgery With a small sip of water, OTHERWISE NOTHING TO EAT OR DRINK AFTER MIDNIGHT: levothyroxine 100 mcg PO QAM Other Notes If you have any questions please call us at [phone] or [phone] or [phone] or [phone]
--- NOTE | 2019-04-18 10:51 | Anesthesiology Consultation ---
Date of Service April 18, 2019 Assessment & Plan (1) Encounter for pre-operative examination: S/P Left LIEN: 06/19/2018: SAB x 1 attempt at L3-L4 at [facility] Chart Review Chart Review: Acceptable Risk for Surgery (pending surgeon-ordered PCP clearance scheduled 04/29 ([facility])) and Patient seen in Pre Admission Testing Teaching & Discussion Pre-Anesthesia Teaching/Discussion Notes: Instructed NPO after midnight before surgery,except medications with 15 cc of water. Medication instructions provided according to the PAT guidelines. History Surgery Operation Date: 05/14/19 11:00 Proposed Procedures p Right Total Knee Arthroplasty Revision with Depuy J/J Metaphyseal Sleeve - Nishant Gamboa MD Height/Weight Height: 5 ft 7 in Weight: 86 kg Allergies Allergy/AdvReac Type Severity Reaction Status Date / Time acetaminophen Allergy Severe HIVES Verified 04/11/19 11:23 Medications Home Medications Medication Instructions Recorded Confirmed Last Taken levothyroxine 100 mcg PO QAM 03/01/18 04/11/19 06/19/18 03:30 Centrum Silver 1 tab PO QAM 05/28/18 04/11/19 Unknown cholecalciferol (vitamin D3) 2,000 unit PO QAM 05/28/18 04/11/19 06/18/18 07:00 [Vitamin D3] amoxicillin 500 mg tablet 500 mg PO UD PRN #4 tab 09/12/18 04/11/19 Unknown loratadine 10 mg tablet 10 mg PO Q24H PRN #30 tab 09/13/18 04/11/19 Unknown hydrochlorothiazide 25 mg tablet 25 mg PO QAM #30 tab 11/25/18 04/11/19 Unknown famotidine 20 mg tablet 20 mg PO DAILY #30 tab 02/20/19 04/11/19 Unknown naproxen sodium [Aleve] 220 mg PO BID PRN 04/11/19 04/11/19 Unknown Past Medical History Medical History Cancer BCC, MELANOMA, SCC Chronic back pain Degenerative disc disease History of blood transfusion post-op TKA (2007) Hypertension Hypothyroidism Osteoarthritis Exercise / Class Metabolic Activity III < 4 Walking/Shop/Light housework (uses cane PRN) Past Family History Family History Mother Family history of diabetes mellitus Myocardial infarction Brother Prostate cancer Myocardial infarction Other No family history of adverse response to anesthesia Denies family history of Ovarian cancer Breast cancer Colorectal cancer Past Surgical History Surgical History Fusion of spine ACDF C4-C5 History of adenoidectomy History of appendectomy History of cataract surgery BILATERAL History of colonoscopy History of dilatation and curettage History of hysterectomy SWATI WITH BSO History of left hip replacement Left LIEN: 06/19/2018: SAB x 1 attempt at L3-L4 at [facility] History of thyroidectomy, subtotal 2/2 THYROID NODULE History of tonsillectomy History of total knee replacement BILATERAL Hx of cholecystectomy Status post Mohs surgery Past Anesthesia History No Hx of Anesthesia Complications and No Family Hx of Anesthesia Complications History of PONV No Hx of PONV and No Hx of Motion Sickness Social History Smoking Status: Former smoker tobacco type: cigarettes Do You Dip or Chew Tobacco: No Smoking End Date: Quit 1985 Hx Alcohol Use: Yes Alcohol type: wine alcohol intake frequency: 0-2 drinks per day (1-1.5 glasses/day) Hx Substance Use: No substance use type: does not use Review of Systems Patient denies chest pain, shortness of breath, cough, wheezing, palpitations. Physical Exam Vital Signs VITALS BP 128/78 P 78 TEMP 98.1 SP02 97%RA RESP 18 PHYSICAL Full neck and c-spine range of motion. Full TMJ range of motion. TMD 3 finger breaths Mallampati Score 3 Dentition: upper partial Lungs: clear throughout to auscultation Cardiac: regular rate and rhythm, no murmurs noted Spine: normal Carotid arteries: negative bruit Extremities: no edema Testing Laboratory Results 04/18/19 11:22 04/18/19 11: PT 10.0 Seconds (9.0-12.0) 04/18/19 11: INR 1.0 (0.9-1.1) 04/18/19 11: APTT 23.6 Seconds (21.0-31.0) 04/18/19 11:22 Urine Color Dark Yellow 04/18/19 11:22 Urine Appearance Clear (Clear) 04/18/19 11:22 Urine pH 5.0 (4.5-7.5) 04/18/19 11:22 Ur Specific [place] 1.029 (1.000-1.030) 04/18/19 11:22 Urine Protein Negative (Negative) 04/18/19 11:22 Urine Glucose (UA) Negative (Negative) 04/18/19 11:22 Urine Ketones Trace (Negative) H 04/18/19 11:22 Urine Nitrite Negative (Negative) 04/18/19 11:22 Ur Leukocyte Esterase Negative (Negative) 04/18/19 11:22 Blood Type A Positive 04/18/19 11: Antibody Screen NEGATIVE 04/18/19 11:22 Electrocardiogram Date: 06/03/18 Findings: + NSR @ (72) Chest X-Ray Date: 06/03/18 Atherosclerosis of the aortic arch. Cardiac silhouette normal in size. Lungs and pleural spaces clear. Degenerative changes of the thoracic spine. Cholecystectomy clips noted. Anterior cervical fusion hardware noted. IMPRESSION: No acute cardiopulmonary disease. Echocardiogram Date: 09/11/16 EF 65% to 70%. No regional wall motion abnormalities. Grade 1 diastolic dysfunction. Trace to mild TR.
[2019-04-18 12:23] LABS: Basophils # (auto) 0.01 K/uL (0-0.2); Basophils % (auto) 0.1 %; Eosinophils # (auto) 0.18 K/uL (0-0.5); Eosinophils % (auto) 2.2 %; Hematocrit (blood only) 42.8 % (37-47); Hemoglobin 14.6 g/dL (12.0-16.0); Immature Granulocytes # (auto) 0.02 K/uL (0.00-0.02); Immature Granulocytes % (auto) 0.2 %; Lymphocytes # (auto) 1.42 K/uL (1.2-3.4); Mean Corpuscular Hemoglobin 29.8 pg (25-34); Mean Corpuscular Hgb Conc 34.1 g/dL (32-36); Mean Corpuscular Volume 87.3 fL (80-100); Mean Platelet Volume 12.5 fL (7.4-10.4); Monocytes # (auto) 0.59 K/uL (0.11-0.59); Monocytes % (auto) 7.1 %; Neutrophils # (auto) 6.14 K/uL (1.4-6.5); Neutrophils % (auto) 73.4 %; Platelet Count 228 K/uL (130-400); RDW Coefficient of Variation 13.3 % (11.5-14.5); RDW Standard Deviation 42.4 fL (36.4-46.3); White Blood Count 8.36 K/uL (4.8-10.8)
[2019-04-18 12:29] LABS: Appearance Urine Clear (Clear); Blood Urine Negative (Negative); Color Urine Dark Yellow; Glucose Urine UA Negative (Negative); Ketones Urine Trace (Negative); Leukocyte Esterase Urine Negative (Negative); Nitrite Urine Negative (Negative); Protein Urine Negative (Negative); Specific Gravity Urine 1.029 (1.000-1.030); Urobilinogen Urine Negative (Negative)
[2019-04-18 12:35] LABS: Partial Thromboplastin Ratio 0.9; Partial Thromboplastin Time 23.6 Seconds (21.0-31.0)
[2019-04-18 12:43] LABS: Bilirubin Urine Negative (Negative); Ictotest Urine Negative (Negative)
[2019-04-18 12:44] LABS: BUN Creatinine Ratio 28.4 (10-20); Blood Urea Nitrogen 29 mg/dl (7-18); Calcium 9.1 mg/dl (8.5-10.1); Carbon Dioxide 28 mmol/L (21-32); Chloride 107 mmol/L (98-107); Creatinine Clr Calc Pharmacy 48.7 ml/min; Est GFR (African American) 59.7; Est GFR (Non-African American) 51.5; Glucose 91 mg/dl (70-99); Potassium 3.8 mmol/L (3.5-5.1); Sodium 139 mmol/L (136-145)
[2019-04-18 12:45] LABS: C Reactive Protein < 0.29 mg/dl (0-0.29)
--- NOTE | 2019-04-22 11:46 | History and Physical Report ---
DATE OF ADMISSION: 05/14/2019 CHIEF COMPLAINT: Right knee pain. HISTORY OF PRESENT ILLNESS: This 79-year-old white female presents to the office with complaints of right knee pain. She initially had total knee arthroplasty done in 2007. Over the last few months, she has noticed that the right knee has felt unstable. She has noted some pain as well. No specific trauma. She has required use of a brace for stability. Preoperative imaging studies were obtained and suggest loosening of her femoral prosthesis. She denies any numbness or tingling. Pain and instability are affecting her ADLs. She is ambulating with a cane. She elects to proceed with right total knee revision arthroplasty with DePuy metaphyseal sleeve in hopes of improving her functional capability. She denies any fevers or chills. Preoperative lab work has shown no evidence of infection. PAST MEDICAL HISTORY: Significant for hypertension, osteoarthritis, hypothyroidism, low back pain with radiculopathy, obesity, history of melanoma, basal cell skin cancer, actinic keratosis, history of squamous cell carcinoma of the forehead, and right foot drop. SURGICAL HISTORY: Total knee arthroplasties bilaterally in 2007, extensive punch biopsies and shave biopsies, Mohs surgery in 2017 and 2017, and left total hip arthroplasty 06/19/2018. ALLERGIES: KNOWN ALLERGY TO ACETAMINOPHEN WHICH CAUSES HIVES. CURRENT MEDICATIONS: Vitamin D 2000 international units daily, Tums p.r.n., HCTZ 25 mg p.o. daily, Synthroid 100 mcg p.o. daily, mometasone nasal spray 2 sprays intranasally daily, multivitamin daily, Naprosyn p.r.n. FAMILY HISTORY: Noncontributory. Parents are . SOCIAL HISTORY: The patient is . Retired. No tobacco use, daily ETOH use. REVIEW OF SYSTEMS: Total of 10 systems are reviewed and are significant only for above stated conditions. PHYSICAL EXAMINATION: VITAL SIGNS: Height 172 cm, weight 86 kilograms, BMI 29, temperature 36.6 oral, BP 142/82, pulse 85, O2 sat 99% on room air. GENERAL: Well-developed, well-nourished elderly white female in no acute distress. Sitting in a chair. Alert and oriented. SKIN: Warm and dry with good turgor. No rashes or lesions. No ecchymosis. No intraarticular effusion. HEENT: Normocephalic, atraumatic. Eyes PERRLA, EOMI. Nares patent bilaterally without turbinate enlargement. Oropharynx without erythema or exudate. No lesions noted. Uvula midline. Oral mucosa moist. Fair dentition. Caps and fillings are noted. Upper bridge is also noted. HEART: RRR. No MGR. LUNGS: Clear to auscultation bilaterally. No crackles, rhonchi or wheezing. Good air movement. ABDOMEN: Obese. Bowel sounds present x4, soft, nontender. No organomegaly. No masses. MUSCULOSKELETAL: Right knee reveals no intraarticular effusion. She does have a knee brace with her. Full terminal extension. Flexion beyond 100 degrees. Strength is 5/5 with fair quad tone. Stable collateral ligaments. She has focal discomfort with palpation around the medial and lateral joint lines. No peripatellar discomfort. No defect in the patellar tendon or quadriceps tendon. Ambulates with a minimally antalgic gait using her cane. NEUROLOGIC: Gross sensation is intact across both lower extremities by soft touch. Peripheral pulses are 2+. DATA: Radiographic imaging previously obtained shows no evidence of loosening. Bone scan is positive for uptake at the femur and tibia. 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 PLAN: Previous sed rate and CRP were normal. Alpha defensin was negative with negative cultures. Preoperative lab work, EKG, and chest x-ray have been ordered. She has an appointment to see her PCP at the end of the month for medical clearance. The patient already has a walker and cane. Informed written consent to proceed with revision total knee arthroplasty will be obtained the morning of surgery. Anticipate discharge to home with home health services. Prescriptions for OxyIR and Coumadin will be provided at that time.
[~2019-05-14 08:17] MED LIST changes: +BUPIVACAINE 0.25% 30 ML VIAL ONE; +BUPIVACAINE 0.5 % 5 MG/1 ML PF 10ML VIAL ONE; +CEFAZOLIN 2000MG 2,000 MG/15 ML SYR IV SCH; -CHOL20007 PO; -GABA-112 PO; -HYDR25TA4 PO; -LEVO100T7 PO; -MULT-506 PO; -NAPR1TAB9 PO; -OMEG10007 PO; -PRT/20 PO; +ROPIVACAINE 0.5% HCL/PF 150 MG, BUPIVACAINE 0.5% MPF 30 ML, EPINEPHrine 0.15 MG, Ketoro... INFIL SCH; +TRANEXAMIC ACID 1,000 MG **IV Pre-op IV SCH; +VANCOMYCIN HCL 1,250 MG in SODIUM CHLORIDE 0.9% 250 ML IV SCH
[2019-05-14] MEDS: LR 60ML/HR IV SCH ×2 (09:00→09:03)
--- NOTE | 2019-05-14 09:12 | History & Physical Bridge Note ---
Date of Service May 14, 2019 History & Physical Bridge Note I have examined the patient, reviewed the History & Physical and in the interval since the performance of the History & Physical I have noted the following changes of clinical significance: consent obtained/site verified/revision noted to be more difficult.no changes noted
[2019-05-14] MEDS ORDERED: fentaNYL citrate 100 MCG/2 ML VIAL ONE (10:07)
[2019-05-14] MEDS ORDERED: MIDAZOLAM HCL 1 MG/ML 2ML VIAL ONE ×2 (10:07→10:08)
[2019-05-14] MEDS ORDERED: ORTHO JOINT ANESTHETIC ONE (10:56)
[2019-05-14] MEDS ORDERED: ONDANSETRON INJ 2 MG/ML 2 ML VIAL IV PRN ×2 (11:24→14:56)
[2019-05-14] MEDS ORDERED: fentaNYL citrate 100 MCG/2 ML VIAL IV PRN (11:24)
[2019-05-14] MEDS ORDERED: PROPOFOL IV EMULSION 10 MG/ML 20 ML VIAL IV ONE (13:28)
[2019-05-14] MEDS ORDERED: LIDOCAINE HCL 2% 2 ML VIAL/AMP(20MG/ML) INFIL ONE (13:28)
--- NOTE | 2019-05-14 13:38 | Post Operative Brief Note ---
Immediate Post Op Note v1 Date of Surgery May 14, 2019 Pre & Post Diagnosis Operation Date: 05/14/19 10:50 Pre-Op Diagnosis: Asceptic Loosening Right Total Knee Arthroplasty Post-Op Diagnosis: Asceptic Loosening Right Total Knee Arthroplasty/poly failure tibial post I identified the patient and participated in the time-out.: Yes Procedure Operation Date: 05/14/19 10:50 Actual Procedures p Right Total Knee Arthroplasty Revision with Depuy Metaphyseal Sleeve(Right) - Nishant Gamboa MD Surgeon Nishant Gamboa MD Orbitread Operator jolanta/[email or web address] Estimated Blood Loss 50 Findings Consistent with Post-Op Diagnosis
--- NOTE | 2019-05-14 13:50 | Operative Report ---
Post Operative Report Pre & Post Diagnosis Operation Date: 05/14/19 10:50 Pre-Op Diagnosis: Asceptic Loosening Right Total Knee Arthroplasty Post-Op Diagnosis: Asceptic Loosening Right Total Knee Arthroplasty I identified the patient and participated in the time-out.: Yes Procedure Operation Date: 05/14/19 10:50 Actual Procedures p Right Total Knee Arthroplasty Revision with Depuy Metaphyseal Sleeve(Right) - Nishant Gamboa MD Surgeon Nishant Gamboa M.D. Sales Assistant Institutional Sales jolanta/angelique CORONEL Estimated Blood Loss 50 Findings Consistent with Post-Op Diagnosis Specimens Bone and soft tissue Drains None Anesthesia Type MAC Spinal Regional Complications none Disposition Accompanied Patient To Recovery: Yes Disposition: Recovery Room Description of Procedure Patient was taken to the operating room and placed under IV sedation with spinal anesthesia and peripheral nerve block. He was given 2 g of IV Ancef for surgical prophylaxis. Time out was performed. He was prepped and draped in routine sterile fashion. I was present during the entire case from the time of patient entering the room until exit. I assisted with positioning, draping, tissue retraction, trialing of implants, putting in permanent implants, hemostasis, closure and dressings. Please see Dr. Gamboa's operative report for further details regarding the procedure. Patient was awakened and transferred to recovery room in stable condition. I attest to the content of the Intraoperative Record and any orders documented therein. Any exceptions are noted below.
--- NOTE | 2019-05-14 13:53 | Operative Report ---
Post Operative Report Pre & Post Diagnosis Operation Date: 05/14/19 10:50 Pre-Op Diagnosis: Asceptic Loosening Right Total Knee Arthroplasty Post-Op Diagnosis: Asceptic Loosening Right Total Knee Arthroplasty I identified the patient and participated in the time-out.: Yes Procedure Operation Date: 05/14/19 10:50 Actual Procedures p Right Total Knee Arthroplasty Revision with Depuy Metaphyseal Sleeve(Right) - Nishant Gamboa MD Surgeon Nishant Gamboa MD Plastic Roller jolanta/angelique CORONEL Estimated Blood Loss 50 Findings Consistent with Post-Op Diagnosis Specimens as per procedure notes Complications none Disposition Accompanied Patient To Recovery: Yes Disposition: Recovery Room Description of Procedure Supine, standard prep and drape, time out, tourniquet Right Total Knee Arthroplasty Revision with Depuy Metaphyseal Sleeve Please see Dr Gamboa's procedure notes for specific details I was present throughout the case, assisted for wound closure and transferred the patient to PACU in stable condition I attest to the content of the Intraoperative Record and any orders documented therein. Any exceptions are noted below.
--- NOTE | 2019-05-14 14:11 | XRay Report ---
XR knee RT 1 or 2V routine CLINICAL HISTORY: 79 years-old Female presenting with post op revision need to see stem tips on 2 vie ws. TECHNIQUE: Frontal and crosstable lateral views of the right knee were obtained. COMPARISON: 03/24/2019. FINDINGS: Postsurgical changes of total right knee arthroplasty revision with extended stem components. Patella r resurfacing noted. Expected intra-articular and soft tissue emphysema. No periprosthetic fracture o r lucency. No malalignment. Overlying skin andre noted. Regional mild swelling. IMPRESSION: Expected postsurgical changes status post revision of the total right knee arthroplasty with patellar resurfacing. ACT 112: Negative or not required by law. Electronically signed by: Juan Manuel Valadez M.D. 05/14/2019 2:10 PM
--- NOTE | 2019-05-14 14:30 | Anesthesiology Progress Note ---
Date of Service May 14, 2019 Anesthesia Post Procedure Vital Signs Vital Signs: Temp Pulse Resp BP Pulse Ox 05/14/19 14:20 36.4 C L 65 18 117/67 100 05/14/19 14:10 62 14 107/66 100 05/14/19 14:00 73 17 119/71 100 05/14/19 13:50 36.1 C L 72 16 104/62 100 05/14/19 08:47 36.6 C 82 18 157/91 H 95 Transfer of Care Handoff Completed per policy Notes Mental Status: alert / awake / arousable and participated in evaluation Nausea / Vomiting: adequately controlled Pain: adequately controlled Airway Patency, RR, SpO2: stable & adequate BP & HR: stable & adequate Hydration State: stable & adequate Neuraxial Anesthesia: was administered and sensory block is resolving Anesthetic Complications: no major complications apparent and Pt Satisfied with anesthetic care
--- NOTE | 2019-05-14 14:46 | Operative Report (OR) ---
DATE OF OPERATION: 05/14/2019 SURGEON: Nishant Gamboa MD. FACULTY DEAN: Dr. Muniz. SECOND FACULTY DEAN: Margaret. PREOPERATIVE DIAGNOSIS: Aseptic loosening, right total knee replacement. POSTOPERATIVE DIAGNOSIS: Aseptic loosening, right total knee replacement with poly fracture of the tibial post. OPERATION PERFORMED: Revision right total knee replacement with metaphyseal sleeve femoral and tibial sides with stems femoral and tibial sides. Extraction of old implant. PERIOPERATIVE SITUATION: Medically cleared female who has had intractable knee pain for well over a year. Physical exam, x-ray and bone scan, CRP, sed rate, and Synovasure cultures revealed aseptic loosening. At the time of arthrotomy,there also was a poly fracture of the post. She also had hyperextendability and medial lateral instability and mid range flexion instability of the right knee. At this point in time, she wants to proceed with the surgical treatment. Again, operation performed is revision right total knee replacement, cemented with metaphyseal porous-coated sleeves and stems, femur and tibia. SUMMARY OF IMPLANTS: Size 3 right TC3 femur, 16 x 75 stem, sleeve is 31. Posterior augments, size 4 medial and lateral; adapter 5 degree, bolt +2. Patella was left alone. Tibia size 3 stem 14 x 75, sleeve is a 45, insert is 3 x 22.5 TC3 rotating platform. ESTIMATED BLOOD LOSS: 50 mL. CRYSTALLOID: Per anesthesia. PATHOLOGY: Bone pathology is not pending. No cultures obtained due to all the preoperative evaluation. DESCRIPTION OF PROCEDURE: The patient was appropriately identified, site verified, consent verified. Antibiotics confirmed as being given. The right lower extremity was prepped and draped in usual routine fashion. The old incision was utilized and extended slightly proximally. Full thickness flaps were raised. Parapatellar arthrotomy performed. The knee had some synovitis with some poly debris. Immediately encountered was the fractured poly, which was removed. Care was taken not to avulse the extensor mechanism. The medial collateral ligament was tight and ultimately avulsed itself proximally and released itself nicely and actually did the release for me. This was off with a small piece of bone. Once all of the soft tissue was debrided and the patella could be everted, the knee flexed, the locking clip was removed from the poly. The poly was worn very heavily medially. This was all removed. The femur was then addressed first. It was semi-loose laterally. It was completed with osteotomes and a saw and removed without difficulty. Very little bone removal was required. The tibia was solidly fixed. This required sawing and osteotoming and then removed without any difficulty. The cement was removed without difficulty as well. The area was then completely irrigated. There was some minor superficial wear on the patella right in the middle that was left alone due to the fact the patella was small and revising it would likely lead to a patellectomy. Tibia was then broached and reamed according to the sizes and then ultimately the trial impacted into position, same with the femur according to the sizes. Distal femur cut 5 degrees and then reamed up to a 16 rhona and then the trial sleeve, the smallest one was placed with the femoral stem and everything fit well. The knee was still very, very loose in extension until we got to the 22.5. Just prior to that is when the metaphyseal avulsion at the epicondyle of the collateral ligament occurred and that allowed everything to balance out extremely well and actually worked out nicely. I was preparing to release the collateral ligament myself. The range of motion of the knee was excellent. The patella tracked well. There was good mid range stability. There was full medial and lateral stability at 0 degrees and 30 degrees. The trial implants were then removed. Everything was assessed on the back table and the permanent implants of metaphyseal sleeves placed in the same position, everything locked into position. Once this was all set up, the area was irrigated with Betadine Pulsavac and then the permanents impacted into position with minimal cement on the surfaces of the bone only, on the margins and nothing in the metaphysis due to the porous-coated sleeves. Once everything was impacted into position, a trial reduction was carried out. After 12 minutes, the tourniquet deflated. Minor bleeding points controlled with electrocautery. After 14 minutes, the knee checked, range of motion was excellent. Stability was excellent in extension, 30 degrees of flexion and mid range flexion and full 90 degrees of flexion. The knee could range from 0-120 degrees with no issues. The patella tracked well. The trial spacer was then removed. The permanent seated after minor cement inspection was occurred. There was nothing that needed to be removed. The wound was then irrigated with Betadine Pulsavac and then the knee liner seated. The knee reduced and then closed at 30 degrees with #2 Vicryl, 2-0 Vicryl and stainless steel clips. Appropriate dressing applied. The patient was then transferred to recovery room in satisfactory condition having tolerated the procedure well. Weightbearing status will be determined by x-ray and collateral ligament will be protected for 4 weeks. I attest to the content of the Intraoperative Record and any orders documented therein. Any exceptions are noted below. RAVEN
[2019-05-14] MEDS ORDERED: MAGNESIUM HYDROXIDE SUSP 30 ML UDC PO PRN (14:56)
[2019-05-14] MEDS ORDERED: NALOXONE HCL 0.4 MG/1 ML VIAL/CARP IV PRN (14:56)
[2019-05-14] MEDS ORDERED: OXYCODONE HCL IR 5 MG TAB (IMMEDIATE RELEASE) PO PRN (14:56)
[2019-05-14] MEDS ORDERED: SODIUM CHLORIDE 0.9% 1000ML 1,000 ML IV SCH (14:56)
[2019-05-14] MEDS ORDERED: FAMOTIDINE 20 MG TAB PO PRN (14:56)
[2019-05-14] MEDS ORDERED: HYDROmorphone INJ 0.5 MG/0.5 ML SYR IV PRN (14:56)
[2019-05-14] MEDS ORDERED: bisacodyL 10 MG SUPP PR PRN (14:56)
[2019-05-14] MEDS ORDERED: METOCLOPRAMIDE HCL INJ 5 MG/ML 2 ML VIAL IV PRN (14:56)
[2019-05-14] MEDS ORDERED: LORATADINE 10 MG TAB PO PRN (14:56)
--- NOTE | 2019-05-14 15:11 | Progress Notes ---
DATE: 05/14/2019 SUBJECTIVE: Postop check, status post revision right total knee replacement. The patient is doing well, sitting up in the recovery room, has no major issues. Denies chest pain, shortness of breath, fever, chills, nausea, vomiting or headache. OBJECTIVE: Vital signs are stable. She is afebrile. Neurovascular check is limited by block. Postop x-rays, AP and lateral look excellent. ASSESSMENT: Postop revision right total knee replacement. Continue postop care pathway. Potential discharge tomorrow. Discharge on Coumadin.
--- NOTE | 2019-05-14 15:16 | Discharge Summary (DS) ---
CHIEF COMPLAINT: Right knee pain. HISTORY OF PRESENT ILLNESS: The patient underwent elective revision right total knee replacement for aseptic loosening and poly failure. At this point in time, her hospital course has been uneventful to date. Her postop x-rays look excellent. PAST MEDICAL HISTORY: Remarkable for hypertension, osteoarthritis, hypothyroidism, low back pain with radiculopathy, obesity, history of melanoma, basal cell skin cancer, actinic keratosis, squamous cell carcinoma on the forehead and right foot drop. PAST SURGICAL HISTORY: Remarkable for total knee arthroplasties bilaterally. Extensive punch biopsies, Mohs surgery, left hip replacement. ALLERGIES: ACETAMINOPHEN WHICH CAUSES HIVES. CURRENT MEDICATIONS: Vitamin D 2000 units, hydrochlorothiazide, Synthroid, mometasone nasal spray, multivitamin. FAMILY HISTORY: Noncontributory. Parents are . SOCIAL HISTORY: Reveals that she is , retired. No tobacco or alcohol use. REVIEW OF SYSTEMS: Noncontributory. Postop x-rays look excellent. ASSESSMENT: Status post revision right knee replacement. We will continue postop care pathway. Follow up in a.m. for potential discharge.
--- NOTE | 2019-05-14 15:17 | Discharge Summary (DS) ---
CHIEF COMPLAINT: Right knee pain. HISTORY OF PRESENT ILLNESS: The patient underwent an elective right total knee replacement. Hospital course has been uneventful to date. Postop x-rays look excellent. PAST MEDICAL HISTORY: Remarkable for hypertension, osteoarthritis, hypothyroidism, multiple skin cancers, history of right foot drop. PAST SURGICAL HISTORY: Remarkable for total knee arthroplasties bilaterally, extensive punch biopsies, Mohs surgery, hip replacement on the left. ALLERGIES: ACETAMINOPHEN WHICH CAUSES HIVES. PREADMISSION MEDICATIONS: Include vitamin D, Tums, hydrochlorothiazide, Synthroid, mometasone nasal spray, multivitamin. FAMILY HISTORY: Noncontributory. Parents are . SOCIAL HISTORY: Reveals she is , retired. No tobacco use. Daily alcohol use. REVIEW OF SYSTEMS: Noncontributory. Postop x-rays look excellent. ASSESSMENT: Status post revision right total knee replacement. At this point in time, she can be weightbearing as tolerated. We will protect her MCL for 3-4 weeks based on surgical findings. Additionally, we placed her on Coumadin, keep INR 1.8-2.2. Follow up in 2 weeks for staple removal.
[2019-05-14] MEDS: ORTHO WARFARIN NOMOGRAM SCH (15:21)
[2019-05-14] MEDS: KETOROLAC TROMETHAMINE 15 MG/ML VIAL IV SCH ×2 (15:29→21:07)
[2019-05-14] MEDS ORDERED: WARFARIN SOD 5 MG TAB PO ONE (16:00)
[2019-05-14] MEDS: CEFAZOLIN 2000MG 2,000 MG/15 ML SYR IV SCH (19:28)
[2019-05-14] MEDS ORDERED: TRANEXAMIC ACID / 0.7% NACL 1,000 MG/100 ML BAG IV SCH (19:53)
[2019-05-14] MEDS ORDERED: SENNA 8.6 MG TAB PO SCH (21:00)
[2019-05-14] MEDS: DOCUSATE SODIUM 100 MG CAP PO SCH (21:07)
[2019-05-15] MEDS: CEFAZOLIN 2000MG 2,000 MG/15 ML SYR IV SCH (03:26)
[2019-05-15] MEDS: KETOROLAC TROMETHAMINE 15 MG/ML VIAL IV SCH ×2 (03:26→10:26)
[2019-05-15 05:36] LABS: Hematocrit (blood only) 36.1 % (37-47); Hemoglobin 12.2 g/dL (12.0-16.0); Mean Corpuscular Hemoglobin 29.8 pg (25-34); Mean Corpuscular Hgb Conc 33.8 g/dL (32-36); Mean Corpuscular Volume 88.3 fL (80-100); Mean Platelet Volume 11.9 fL (7.4-10.4); Platelet Count 195 K/uL (130-400); RDW Coefficient of Variation 13.3 % (11.5-14.5); Red Blood Count 4.09 M/uL (4.2-5.4); White Blood Count 13.13 K/uL (4.8-10.8)
[2019-05-15 05:50] LABS: Prothrombin Time 10.9 Seconds (9.0-12.0)
[2019-05-15 05:58] LABS: BUN Creatinine Ratio 24.4 (10-20); Calcium 8.4 mg/dl (8.5-10.1); Creatinine Clr Calc Pharmacy 44.9 ml/min; Est GFR (African American) 54.5
[2019-05-15] MEDS ORDERED: LEVOTHYROXINE SODIUM 100 MCG TABLET PO SCH (06:30)
[2019-05-15] MEDS ORDERED: dexAMETHasone 10 MG in SYRINGE 0 ML IV SCH (08:00)
--- NOTE | 2019-05-15 08:09 | Anesthesiology Progress Note ---
Date of Service May 15, 2019 Anesthesia Post Procedure Vital Signs Vital Signs: Temp Pulse Pulse Resp BP BP Pulse Ox 05/15/19 07:52 36.5 C 69 18 115/71 97 05/15/19 03:40 36.4 C L 65 16 129/74 98 05/14/19 22:56 36.8 C 74 16 126/76 95 05/14/19 20:07 36.6 C 71 16 131/74 94 05/14/19 17:51 36.7 C 77 18 122/72 97 05/14/19 16:46 36.4 C L 61 16 124/71 98 05/14/19 15:46 36.4 C L 65 20 125/77 100 05/14/19 15:22 36.2 C L 65 18 115/73 95 05/14/19 14:30 36.4 C L 64 15 117/68 100 05/14/19 14:20 36.4 C L 65 18 117/67 100 05/14/19 14:10 62 14 107/66 100 05/14/19 14:00 73 17 119/71 100 05/14/19 13:50 36.1 C L 72 16 104/62 100 05/14/19 08:47 36.6 C 82 18 157/91 H 95 Notes Mental Status: alert / awake / arousable and participated in evaluation Patient Amnestic to Procedure: Yes Nausea / Vomiting: adequately controlled Pain: adequately controlled Airway Patency, RR, SpO2: stable & adequate BP & HR: stable & adequate Hydration State: stable & adequate Neuraxial Anesthesia: was administered and sensory block resolved Anesthetic Complications: no major complications apparent and Pt Satisfied with anesthetic care
[2019-05-15] MEDS: DOCUSATE SODIUM 100 MG CAP PO SCH (08:56)
[2019-05-15] MEDS ORDERED: hydroCHLOROthiazide 25 MG TAB PO SCH (09:00)
[2019-05-15] MEDS ORDERED: CEROVITE ADV FORMULA TAB PO SCH (09:00)
[2019-05-15] MEDS ORDERED: MULTIVITAMIN TAB PO SCH (09:00)
[2019-05-15] MEDS ORDERED: CHOLECALCIFEROL 1,000 UNITS 25 MCG TAB PO SCH (09:00)
--- NOTE | 2019-05-15 09:41 | Orthopedic Progress Note ---
Date of Service May 15, 2019 Assessment & Plan (1) S/P revision of total knee: PT/OT this AM Dressing changed and JOSÉ MIGUEL placed on Rt LE Coumadin 2 mg daily for DVT prophy with goal INR of 1.8-2.2 Biweekly INR checks x 6 wks Discharge home today with home health services Knee immobilizer use x 3-4 weeks Walker as ambulatory aide Ice with EZ wrap PO Pain control F/u with Cong Rossi PA-C on 05/29/19 @ 12:45 With question call . Admission and Anticipated Discharge Date Admission Date: May 14, 2019 Subjective This 79 yo F is day 1 s/p Revision Right total knee arthroplasty. She is doing very well. Was up walking when we entered the room. Patient states that her pain is well controlled with PO meds. She state that she wants to be discharged home today with home health services. At this time patient denies CP, SOB, nausea, vomiting, fever, chill, sweats or lethargy. Review of Systems Review of Systems: All systems reviewed & are unremarkable except as noted in Subjective Physical Exam Physical Exam: Right knee: immobilizer and dressing removed. Small amt of seepage on inner most layer of dressing. Mild edema. Patient is able to depict light sensation to touch around incision site. No active drainage. Able to perform SLRT. Quad strength 3/5. Calf soft a supple. Able to actively dorsi/plantar flex foot. Knee ROM 0-80. NV intact. Periph pulses easily pa lpable. Cap refill < 2 seconds. Results & Data ([facility]) Vital Signs (Past 12 Hours) Vital Signs Temp Pulse Resp BP Pulse Ox 05/15/19 07:52 36.5 C 69 18 115/71 97 05/15/19 03:40 36.4 C L 65 16 129/74 98 05/14/19 22:56 36.8 C 74 16 126/76 95 Laboratory Results 05/15/19 05/15/19 05/15/19 Range/Units 05:02 05:02 05:02 WBC 13.13 H (4.8-10.8) K/uL RBC 4.09 L (4.2-5.4) M/uL Hgb 12.2 (12.0-16.0) g/dL Hct 36.1 L (37-47) % MCV 88.3 (80-100) fL MCH 29.8 (25-34) pg MCHC 33.8 (32-36) g/dL RDW Std Deviation 43.0 (36.4-46.3) fL RDW Coeff of Loly 13.3 (11.5-14.5) % Plt Count 195 (130-400) K/uL MPV 11.9 H (7.4-10.4) fL PT 10.9 (9.0-12.0) Seconds INR 1.0 (0.9-1.1) Sodium 139 (136-145) mmol/L Potassium 4.0 (3.5-5.1) mmol/L Chloride 109 H (98-107) mmol/L Carbon Dioxide 24 (21-32) mmol/L Anion Gap 6.0 (3-11) BUN 27 H (7-18) mg/dl Creatinine 1.10 (0.6-1.2) mg/dl Est Cr Clr Drug Dosing 44.9 ml/min Est GFR ( Amer) 54.5 Est GFR (Non-Af Amer) 47.0 BUN/Creatinine Ratio 24.4 H (10-20) Glucose 142 H (70-99) mg/dl Calcium 8.4 L (8.5-10.1) mg/dl
[2019-05-15] MEDS: ORTHO WARFARIN NOMOGRAM SCH (10:26)
--- NOTE | 2019-05-15 11:03 | Progress Notes ---
DATE: 05/15/2019 SUBJECTIVE: Postop day #1 status post revision right knee replacement. The patient is doing well. There are no major issues. She is ambulatory. She is voiding, eating, and drinking. She can do a straight leg raise. OBJECTIVE: VITAL SIGNS: Stable. She is afebrile. NEUROLOGIC: Neurovascular check, femoral sciatic nerve his baseline. History of foot drop, but has coronal plane motion. Has slight decreased sensation baseline. SKIN: Wound dressing is clean, dry and intact. LABORATORY DATA: Laboratory work is good. Hematocrit is stable at 36.1, INR is 1.0. ASSESSMENT AND PLAN: Doing well. Discharged to home today, Discharged on 4 mg of Coumadin.
[2019-05-15] MEDS ORDERED: WARFARIN SOD 5 MG TAB PO SCH (16:00)
== END 2019-05-15 11:51 | disposition home health service (06) | DRG 468 ==
LOC: ASU 08:17 → 3E 13:56 → INTOOBSV 13:56

== ENCOUNTER 2024-01-30 09:04 | Observation (INO) ==
[2024-01-30] MEDS: OPTIRAY 320 125ml IV ONE (09:09)
--- NOTE | 2024-01-30 09:13 | Emergency Department Note ---
Impression & Plan Stroke-like symptoms ED Provider Note ED Provider Note NAME: JACKLYN GOLDEN AGE:83 SEX: Female : 1940 ARRIVES VIA: EMS INFORMANT: Patient ED PROVIDER(s): Katya Armenta DO CHIEF COMPLAINT: Strokelike symptoms HPI: This is an 83-year-old female brought in by EMS after she began to notice difficulty reading this morning and feeling "weird" that began after she had walked her dog around 7 AM. She states she woke up at 6:45 and felt in her usual state of health. She states no falls or injuries. She states after walking her dog when she sat down to read she noticed that she had a difficult time reading and her vision was off. She could not qualify if it was blurred or double. She denies headaches this morning but states she has had headaches the last 2 days. She denies dizziness but describes the left sensation as "fogginess". EMS reported when they arrived at the residence patient seemed to have some difficulty speaking and identifying objects. When family arrived they felt she was confused. Prehospital blood sugar reassuring at 113. Patient noted to be mildly hypertensive, other vital signs stable. No use of anticoagulation per EMS report. Upon arrival here patient denies any extremity weakness, vision changes, or difficulty speaking. Patient was made a stroke alert prehospital. PAST MEDICAL HISTORY:See Below PAST SURGICAL HISTORY:See Below FAMILY HISTORY:See Below SOCIAL HISTORY:See Below HOME MEDICATIONS:See Below ALLERGIES:See Below VITALS:See Below PHYSICAL EXAMINATION: GENERAL: alert, well appearing, well nourished, no distress, non-toxic EYE EXAM: normal conjunctiva, PERRL and EOM's grossly intact OROPHARYNX: no exudate, no erythema, lips, buccal mucosa, and tongue normal and mucous membranes are moist NECK: supple, no nuchal rigidity, no adenopathy, non-tender LUNGS: Clear to auscultation. Normal chest wall mechanics, no w/r/r HEART: no murmurs, S1 normal and S2 normal ABDOMEN: abdomen soft, non-tender, normo-active bowel sounds, no masses, no rebound or guarding. BACK: Back is symmetrical on inspection and there is no deformity, no midline tenderness, no CVA tenderness. SKIN: no rashes, petechiae, orbruising UPPER EXTREMITIES: upper extremities are grossly normal. FROM, nml pulses b/l. LOWER EXTREMITIES: No pitting edema. FROM, nml pulses b/l. NEURO EXAM: Normal sensorium, cranial nerves II-XII grossly intact, normal speech, no facial droop,nogross weakness of arms, no gross weakness of legs. Gross sensation intact. No ataxia. NIHSS 0. Vital Signs: reviewed and remarkable Differential Diagnosis: ischemic Stroke, hemorrhagic stroke, bells palsy, mass, neoplasm, migraine headache, seizure, subarachnoid hemorrhage, TIA, and transient global amnesia. MEDICAL DECISION MAKING: This is an 83-year-old female who presents emergency department as a stroke alert prehospital due to concern for difficulty reading, speech abnormality, and confusion. Upon arrival patient went urgently to CAT scan per stroke protocol. Upon arrival back in the room, labs drawn and sent, IV established, EKG and chest ray performed at bedside and interpreted by me and patient monitored on telemetry. I did speak with the stroke neurologist who did perform a bedside evaluation also. I did speak with family who also presented to bedside and were present during the evaluation by the stroke neurologist. Patient's NIH stroke score was 0. Patient not felt appropriate for TNK and family/patient do not want TNK at this time. Neurology did recommend aspirin and Plavix as well as admission for further stroke evaluation or other potential causes. Patient was given IV fluid hydration and did receive labetalol 5 mg IV initially due to initial hypotension. Patient's other labs and urine reassuring. Case discussed with the hospitalist team for additional evaluation and management. Consultation(s): 0920: Discussed with Dr. Edwards, [place] [facility], for additional evaluation. 0942: Discussed with Dr. Edwards again. No TNK at this time. Patient should be started on 81 mg aspirin and 300 mg Plavix and admitted for further stroke evaluation including MRI. 0955: Discussed with [facility] hospitalist team, for additional evaluation and management. ER Treatment Provided: See below 0925: Discussed with daughter who now arrives at bedside. She was able to speak with her mom. She states she is improved compared to when she first made contact with her at home however is still not back to normal. She states her speech still sounds slightly off to her. She states this morning at home she was very much confused. They also noted she was repetitive asking the same questions several times. Diagnostics Interpreted By Me: -ECG: Normal sinus at 93 with first-degree AV block, normal axis, normal intervals, no acute ST/T wave changes -Cardiac Monitoring: An order was placed for continuous cardiac monitoring. The monitor shows a rate of 92 with normal sinus rhythm. -Laboratory studies: As stated above and show below. -Imaging studies: X-ray Chest: A single view study of the chest was reviewed and was negative for cardiomegaly, focal infiltrate, effusion, pulmonary edema, or wide mediastinum. Triage Nursing Note Reviewed Prior/Outside Records Reviewed Critical Care: Critical care of 39 min performed to assess and manage high likelihood of life-threatening strokelike symptoms, involving labs and imaging performed with assessment to evaluate strokelike symptoms diagnosis with frequent reassessment. This time includes bedside time, treatment discussions with patient/family/consultants, documentation time and excludes procedure time. Past Med/Surg History Problem List Stroke-like symptoms (Acute) Facet arthropathy, lumbosacral Lumbago Lumbosacral spondylosis Neuroforaminal stenosis of lumbosacral spine Spinal stenosis of lumbar region with neurogenic claudication Multiple lung nodules on CT Right ankle injury Erosive gastritis Hematuria Renal insufficiency Low sodium levels Liver cyst Vitamin B12 deficiency Numbness and tingling of right face Status post placement of implantable loop recorder History of fusion of cervical spine Degenerative spondylolisthesis Tachycardia Nonsustained paroxysmal ventricular tachycardia Former cigarette smoker Elevated LDL cholesterol level Abnormal electrocardiogram GAFFNEY (dyspnea on exertion) Lumbar spinal stenosis Cervical spinal stenosis Falls frequently Thyroid nodule Acquired deviated nasal septum Chronic sinusitis of both maxillary sinuses Seasonal allergies H/O Malignant melanoma Headache Gait disturbance (Acute) S/p total knee replacement, bilateral (Acute) History of squamous cell carcinoma of skin (Acute) Hypertension (Acute) Hypothyroidism (Acute) Spinal stenosis (Acute) White coat syndrome with hypertension (Acute) Idiopathic polyneuropathy Sensorineural hearing loss of both ears Chronic back pain Medical History Anxiety Nonsustained paroxysmal supraventricular tachycardia Chills Abdominal pain Implantable loop recorder present 05/2022 [facility]- placed after syncopal episode, no issues since placed; follows w/ Dr Goldberg Itching r/t neruropathy; reason for duloxetine Hx of squamous cell carcinoma Hx of basal cell carcinoma Spinal stenosis GERD (gastroesophageal reflux disease) Peripheral vascular disease Chronic knee pain after total replacement of right knee joint History of blood transfusion post-op TKA (2007) Hip pain History of malignant melanoma ear and back- excision Leg length discrepancy Hypertension Hypothyroidism Osteoarthritis Degenerative disc disease Surgical History S/P revision of total knee right knee revision History of left hip replacement Left LIEN: 06/19/2018: SAB x 1 attempt at L3-L4 at [facility] History of cataract surgery BILATERAL History of adenoidectomy History of tonsillectomy Status post Mohs surgery History of thyroidectomy, subtotal 2/2 THYROID NODULE History of colonoscopy History of appendectomy History of total knee replacement BILATERAL Fusion of spine ACDF C4-C5 - Full ROM History of dilatation and curettage History of hysterectomy SWATI WITH BSO Hx of cholecystectomy Family History Mother Family history of diabetes mellitus Myocardial infarction Brother Prostate cancer Myocardial infarction Other Allergies Asthma Heart disease Hypertension No family history of adverse response to anesthesia No family history of bleeding disorder Stroke Denies family history of Ovarian cancer Breast cancer Colorectal cancer Social History Smoking Status: Former smoker Tobacco Type: Cigarettes Age Started Using Tobacco: 14; Age Quit Using Tobacco: 43; packs per day: 1; Second Hand Exposure: Yes (first was a smoker); Do You Dip or Chew Tobacco: No; Hx Alcohol Use: No Hx Substance Use: No Preferred Language: Urdu Communication Ability: Effective Visual Impairment: No Limitations Hearing Ability: Normal Hemodialysis Charge Nurse Required: No Beliefs That Will Affect Care: None marital status: / Current Living Situation: Alone current occupational status: retired Other Information That Helps Us Care for You: No Feels Safe at Home: Yes Safety Concerns: Feels Safe At This Time Childhood Exposure to Second-Hand Smoke: No Dental Care, Regularly: Yes Physical Activity Frequency: Daily Seatbelt Use: always Sunscreen Use: Yes Assistive Devices: Cane Allergies Allergies Allergy/AdvReac Type Severity Reaction Status Date / Time acetaminophen Allergy Severe HIVES Verified 01/30/24 10:17 duloxetine [From Cymbalta] Allergy Intermediate Rash and Unverified 01/21/24 07:59 itching on Abdomen sucralfate [From Carafate] AdvReac Severe Nausea Verified 01/21/24 07:59 tramadol AdvReac Intermediate upset Verified 01/21/24 07:59 stomach ondansetron AdvReac Unknown UPSET Verified 01/21/24 07:59 STOMACH Home Meds Home Medications Medication Instructions Recorded Confirmed cholecalciferol (vitamin D3) 50 2,000 unit PO QAM 05/28/18 01/30/24 mcg (2,000 unit) capsule (Vitamin D3) [id number] acid 0.4 1 tab PO QAM 05/28/18 01/30/24 mg-lycopene 300 mcg-lutein 250 mcg tablet (Centrum Silver) Previous Rx's Medication Instructions Recorded mecobalamin (vitamin B12) 1,000 1,000 mcg PO DAILY #90 tabs 09/11/22 mcg chewable tablet loratadine 5 mg disintegrating 5 mg PO DAILY #90 tabs 06/20/23 tablet (Allergy Relief (loratadine)) levothyroxine 100 mcg tablet 100 mcg PO QAM #90 tabs 07/17/23 fluticasone propionate 50 2 spray intranasal DAILY PRN 08/31/23 mcg/actuation nasal Allergy Symptoms #16 grams spray,suspension gabapentin 100 mg capsule 100 mg PO TID #90 caps 10/04/23 pantoprazole 40 mg tablet,delayed See Rx Instructions .Route 01/07/24 release .COMPLEX #90 tabs diclofenac sodium 75 mg 75 mg PO BID #60 tabs 01/21/24 tablet,delayed release Results & Data (ED) Vital Signs Vital Signs - 24 hr 01/30/24 09:06 01/30/24 09:10 01/30/24 09:10 Pulse Rate 96 H Pulse Rate [Apical] 100 H Pulse Rate from SpO2 Sensor Pulse Rhythm [Apical] Pulse Strength [Apical] Respiratory Rate 16 20 Respiratory Effort / Characteristics Non-Labored Non-Labored Respiratory Depth Normal Normal Respiratory Pattern Blood Pressure 192/109 H Blood Pressure [Right Arm] 192/109 H Blood Pressure Mean 136 Blood Pressure Mean [Right Arm] 136 Blood Pressure Position Lying Blood Pressure Position [Right Arm] Pulse Oximetry 97 96 96 Oxygen Delivery Method Room Air Room Air Room Air Sepsis Recent Fever Within 48 Hours No Sepsis New/Unexplained Change in Mental Status Yes Sepsis Action Taken by Nursing No Action Required 01/30/24 09:16 01/30/24 09:18 01/30/24 09:24 Pulse Rate 94 H 95 H Pulse Rate [Apical] Pulse Rate from SpO2 Sensor 94 H 90 Pulse Rhythm [Apical] Pulse Strength [Apical] Respiratory Rate 22 16 Respiratory Effort / Characteristics Respiratory Depth Respiratory Pattern Blood Pressure 192/109 H Blood Pressure [Right Arm] Blood Pressure Mean 152 Blood Pressure Mean [Right Arm] Blood Pressure Position Blood Pressure Position [Right Arm] Pulse Oximetry 96 98 Oxygen Delivery Method Sepsis Recent Fever Within 48 Hours Sepsis New/Unexplained Change in Mental Status Sepsis Action Taken by Nursing 01/30/24 09:25 01/30/24 09:26 01/30/24 09:27 Pulse Rate 91 H 83 Pulse Rate [Apical] Pulse Rate from SpO2 Sensor 83 Pulse Rhythm [Apical] Pulse Strength [Apical] Respiratory Rate 18 Respiratory Effort / Characteristics Respiratory Depth Respiratory Pattern Blood Pressure 178/112 H 178/112 H Blood Pressure [Right Arm] Blood Pressure Mean 119 Blood Pressure Mean [Right Arm] Blood Pressure Position Blood Pressure Position [Right Arm] Pulse Oximetry 98 Oxygen Delivery Method Sepsis Recent Fever Within 48 Hours Sepsis New/Unexplained Change in Mental Status Sepsis Action Taken by Nursing 01/30/24 09:29 01/30/24 09:30 01/30/24 09:30 Pulse Rate 83 Pulse Rate [Apical] 78 Pulse Rate from SpO2 Sensor Pulse Rhythm [Apical] Regular Pulse Strength [Apical] Normal Respiratory Rate 18 Respiratory Effort / Characteristics Non-Labored Respiratory Depth Normal Respiratory Pattern Regular Blood Pressure 168/89 H Blood Pressure [Right Arm] 168/89 H Blood Pressure Mean 98 Blood Pressure Mean [Right Arm] 115 Blood Pressure Position Blood Pressure Position [Right Arm] Lying Pulse Oximetry 99 Oxygen Delivery Method Room Air Sepsis Recent Fever Within 48 Hours Sepsis New/Unexplained Change in Mental Status Sepsis Action Taken by Nursing 01/30/24 09:33 01/30/24 09:35 01/30/24 09:39 Pulse Rate 78 83 Pulse Rate [Apical] Pulse Rate from SpO2 Sensor 78 83 Pulse Rhythm [Apical] Pulse Strength [Apical] Respiratory Rate 17 16 Respiratory Effort / Characteristics Respiratory Depth Respiratory Pattern Blood Pressure 189/116 H Blood Pressure [Right Arm] Blood Pressure Mean 128 Blood Pressure Mean [Right Arm] Blood Pressure Position Blood Pressure Position [Right Arm] Pulse Oximetry 99 98 Oxygen Delivery Method Sepsis Recent Fever Within 48 Hours Sepsis New/Unexplained Change in Mental Status Sepsis Action Taken by Nursing 01/30/24 09:40 01/30/24 09:45 01/30/24 09:49 Pulse Rate 80 Pulse Rate [Apical] Pulse Rate from SpO2 Sensor Pulse Rhythm [Apical] Pulse Strength [Apical] Respiratory Rate Respiratory Effort / Characteristics Respiratory Depth Respiratory Pattern Blood Pressure 177/108 H 144/94 H 144/94 H Blood Pressure [Right Arm] Blood Pressure Mean 139 132 Blood Pressure Mean [Right Arm] Blood Pressure Position Blood Pressure Position [Right Arm] Pulse Oximetry Oxygen Delivery Method Sepsis Recent Fever Within 48 Hours Sepsis New/Unexplained Change in Mental Status Sepsis Action Taken by Nursing 01/30/24 09:51 01/30/24 10:08 01/30/24 10:18 Pulse Rate 81 78 79 Pulse Rate [Apical] Pulse Rate from SpO2 Sensor 81 78 Pulse Rhythm [Apical] Pulse Strength [Apical] Respiratory Rate 24 18 21 Respiratory Effort / Characteristics Respiratory Depth Respiratory Pattern Blood Pressure 178/100 H Blood Pressure [Right Arm] Blood Pressure Mean 128 Blood Pressure Mean [Right Arm] Blood Pressure Position Blood Pressure Position [Right Arm] Pulse Oximetry 100 100 100 Oxygen Delivery Method Room Air Sepsis Recent Fever Within 48 Hours Sepsis New/Unexplained Change in Mental Status Sepsis Action Taken by Nursing 01/30/24 10:30 01/30/24 10:45 Pulse Rate 70 Pulse Rate [Apical] Pulse Rate from SpO2 Sensor 71 Pulse Rhythm [Apical] Pulse Strength [Apical] Respiratory Rate 19 Respiratory Effort / Characteristics Respiratory Depth Respiratory Pattern Blood Pressure 167/95 H Blood Pressure [Right Arm] Blood Pressure Mean 116 Blood Pressure Mean [Right Arm] Blood Pressure Position Blood Pressure Position [Right Arm] Pulse Oximetry 100 Oxygen Delivery Method Room Air Sepsis Recent Fever Within 48 Hours Sepsis New/Unexplained Change in Mental Status Sepsis Action Taken by Nursing Laboratory Data 01/30/24 09:20 01/30/24 09:20 Lab Results 01/30/24 01/30/24 01/30/24 Range/Units 09:19 09:20 09:24 WBC 5.82 (4.8-10.8) K/ul RBC 4.74 (4.20-5.40) M/uL Hgb 13.7 (12.0-16.0) g/dl POC Hgb 13.3 (12.0-16.0) g/dl Hct 40.6 (37.0-47.0) % POC Hct 39 (37-47) % MCV 85.7 (80.0-100.0) fL MCH 28.9 (25.0-34.0) pg MCHC 33.7 (32.0-36.0) g/dL RDW Std Deviation 42.6 (36.4-46.3) fL RDW Coeff of Loly 13.5 (11.5-14.5) % Plt Count 232 (130-400) K/uL MPV 11.1 (9.4-12.4) fL Immature Gran % (Auto) 0.2 % Neut % (Auto) 73.6 % Lymph % (Auto) 16.5 % [place] % (Auto) 7.0 % Eos % (Auto) 2.4 % Baso % (Auto) 0.3 % Neut # (Auto) 4.28 (1.40-6.50) K/uL Lymph # (Auto) 0.96 L (1.20-3.40) K/uL [place] # (Auto) 0.41 (0.11-0.59) K/uL Eos # (Auto) 0.14 (0.00-0.50) K/uL Baso # (Auto) 0.02 (0.00-0.20) K/uL Immature Gran # (Auto) 0.01 (0.01-0.20) K/uL PT 10.7 (9.0-12.0) Seconds INR 1.0 (0.9-1.1) APTT 24 (21-31) Seconds PTT Ratio 0.9 POC Sodium 134 L (135-144) mmol/L Sodium 135 L (136-145) mmol/L POC Potassium 4.1 (3.3-5.0) mmol/L Potassium 4.1 (3.5-5.1) mmol/L POC Chloride 103 (101-112) mmol/L Chloride 106 (98-107) mmol/L Carbon Dioxide 24 (21-32) mmol/L POC Total CO2 22 L (24-31) mmol/L Anion Gap 5 (3-11) POC Anion Gap 14.0 L (16-25) mmol/L POC BUN 26 H (7-18) mg/dl BUN 27 H (6-23) mg/dl Creatinine 0.92 (0.6-1.2) mg/dl POC Creatinine 1.0 (0.6-1.3) mg/dl Est Cr Clr Drug Dosing 48.2 ml/min eGFR 61.02 BUN/Creatinine Ratio 29.3 H (10-20) Glucose 95 (70-99(Fasting)) mg/dl POC Glucose 93 (70-99) mg/dl POC Glucose (other) 91 (70-99) mg/dl Calcium 8.6 (8.6-10.3) mg/dl POC Ioniz Calcium Ashish 1.18 (1.12-1.32) mmol/l Magnesium 1.8 (1.7-2.4) mg/dl Total Bilirubin 0.6 (0.2-1.0) mg/dl AST 20 (13-39) U/L ALT 17 (7-52) U/L Alkaline Phosphatase 88 (34-104) U/L Troponin I High Sens 6.2 (0-14) pg/ml Total Protein 6.0 (6.0-8.3) gm/dl Albumin 3.4 (3.4-5.0) gm/dl Globulin 2.6 (2.5-4.0) gm/dl Albumin/Globulin Ratio 1.3 (0.9-2) Urine Color Urine Appearance (Clear) Urine pH (4.5-7.5) Ur Specific [place] (1.000-1.030) Urine Protein (Negative) Urine Glucose (UA) (Negative) Urine Ketones (Negative) Urine Blood (Negative) Urine Nitrite (Negative) Urine Bilirubin (Negative) Urine Urobilinogen (Negative) Ur Leukocyte Esterase (Negative) Blood Type A Positive Antibody Screen NEGATIVE 01/30/24 Range/Units 10:05 WBC (4.8-10.8) K/ul RBC (4.20-5.40) M/uL Hgb (12.0-16.0) g/dl POC Hgb (12.0-16.0) g/dl Hct (37.0-47.0) % POC Hct (37-47) % MCV (80.0-100.0) fL MCH (25.0-34.0) pg MCHC (32.0-36.0) g/dL RDW Std Deviation (36.4-46.3) fL RDW Coeff of Loly (11.5-14.5) % Plt Count (130-400) K/uL MPV (9.4-12.4) fL Immature Gran % (Auto) % Neut % (Auto) % Lymph % (Auto) % [place] % (Auto) % Eos % (Auto) % Baso % (Auto) % Neut # (Auto) (1.40-6.50) K/uL Lymph # (Auto) (1.20-3.40) K/uL [place] # (Auto) (0.11-0.59) K/uL Eos # (Auto) (0.00-0.50) K/uL Baso # (Auto) (0.00-0.20) K/uL Immature Gran # (Auto) (0.01-0.20) K/uL PT (9.0-12.0) Seconds INR (0.9-1.1) APTT (21-31) Seconds PTT Ratio POC Sodium (135-144) mmol/L Sodium (136-145) mmol/L POC Potassium (3.3-5.0) mmol/L Potassium (3.5-5.1) mmol/L POC Chloride (101-112) mmol/L Chloride (98-107) mmol/L Carbon Dioxide (21-32) mmol/L POC Total CO2 (24-31) mmol/L Anion Gap (3-11) POC Anion Gap (16-25) mmol/L POC BUN (7-18) mg/dl BUN (6-23) mg/dl Creatinine (0.6-1.2) mg/dl POC Creatinine (0.6-1.3) mg/dl Est Cr Clr Drug Dosing ml/min eGFR BUN/Creatinine Ratio (10-20) Glucose (70-99(Fasting)) mg/dl POC Glucose (70-99) mg/dl POC Glucose (other) (70-99) mg/dl Calcium (8.6-10.3) mg/dl POC Ioniz Calcium Ashish (1.12-1.32) mmol/l Magnesium (1.7-2.4) mg/dl Total Bilirubin (0.2-1.0) mg/dl AST (13-39) U/L ALT (7-52) U/L Alkaline Phosphatase (34-104) U/L Troponin I High Sens (0-14) pg/ml Total Protein (6.0-8.3) gm/dl Albumin (3.4-5.0) gm/dl Globulin (2.5-4.0) gm/dl Albumin/Globulin Ratio (0.9-2) Urine Color Yellow Urine Appearance Clear (Clear) Urine pH 5.5 (4.5-7.5) Ur Specific [place] 1.037 H (1.000-1.030) Urine Protein Negative (Negative) Urine Glucose (UA) Negative (Negative) Urine Ketones Negative (Negative) Urine Blood Negative (Negative) Urine Nitrite Negative (Negative) Urine Bilirubin Negative (Negative) Urine Urobilinogen Negative (Negative) Ur Leukocyte Esterase Negative (Negative) Blood Type Antibody Screen Administered Medications Gabapentin (Gabapentin 100 Mg Cap) 100 mg PO TID UMESH Stop: 02/29/24 13:59 Last Admin: 01/30/24 15:27 Dose: 100 mg Documented By: JULIEN Pantoprazole Sodium (Pantoprazole 40 Mg Tab) 40 mg PO DAILY UMESH Stop: 02/29/24 12:20 Last Admin: 01/30/24 15:27 Dose: 40 mg Documented By: JULIEN Discontinued Medications Aspirin (Aspirin 81 Mg Ectab) 81 mg PO NOW STA Stop: 01/30/24 09:45 Last Admin: 01/30/24 09:52 Dose: 81 mg Documented By: ANGEL Clopidogrel Bisulfate (Clopidogrel Bisulfate 300 Mg Tab) 300 mg PO NOW STA Stop: 01/30/24 09:45 Last Admin: 01/30/24 09:51 Dose: 300 mg Documented By: ANGEL Gadobutrol (Gadobutrol 65ml Vial) 7.5 ml IV ONCE ONE Stop: 01/30/24 11:40 Last Admin: 01/30/24 11:39 Dose: 7.5 ml Documented By: LETITIA Sodium Chloride (Nss) 1,000 mls @ 125 mls/hr IV .Q8H UMESH Stop: 01/31/24 09:29 Last Infusion: 01/30/24 15:27 Dose: 125 mls/hr Documented By: Admin: 01/30/24 09:31 Dose: 125 mls/hr Documented By: ANGEL Ibuprofen (Ibuprofen 600 Mg Tab) 600 mg PO NOW ONE Stop: 01/30/24 15:34 Last Admin: 01/30/24 15:41 Dose: 600 mg Documented By: JULIEN Ioversol (Optiray 320 125ml) 120 ml IV ONCE ONE Stop: 01/30/24 09:09 Last Admin: 01/30/24 09:09 Dose: 120 ml Documented By: BRAngus Labetalol HCl (Labetalol Hcl Iv 5 Mg/Ml 20ml) 5 mg IV NOW STA Stop: 01/30/24 09:19 Last Admin: 01/30/24 09:26 Dose: 5 mg Documented By: ES Imaging Data Radiologist's Impression: Chest X-Ray 01/30/24 09:02 XR chest 1V portable CLINICAL HISTORY: neuro deficit, acute stroke suspected COMPARISON STUDY: Chest CT December 19, 2023. Chest radiograph January 04, 2024. FINDINGS: There are postoperative findings within the cervical spine. An electronic device projects over the chest. Lung volumes are normal. Lungs are clear. There is no pneumothorax or pleural effusion. Cardiomegaly is unchanged. Mediastinal contours are normal. There is no evidence for pulmonary edema. Several calcified and noncalcified pleural plaques are present. A nodular density within the right midlung is unchanged. IMPRESSION: No acute cardiopulmonary findings. ACT 112: Negative or not required by law. Electronically signed by: Sunil Mesa M.D. 01/30/2024 9:[address] 01/30/24 09:02 CT OF THE HEAD WITHOUT CONTRAST CLINICAL HISTORY: neuro deficit, acute stroke suspected. Weakness. Blurry vision. COMPARISON STUDY: MRI of the brain February 23, 2022. Head CT April 26, 2023. TECHNIQUE: Helical axial images of the head were obtained without IV contrast. Automated exposure control was utilized for the study. A dose lowering technique was utilized adhering to the principles of ALARA. FINDINGS: No acute intracranial hemorrhage, midline shift or mass effect is present. The ventricular system is stable. White matter hypodensities are unchanged and favor small vessel disease. A hypodensity within left basal ganglia favors a prominent perivascular space. This is unchanged. The basal cisterns are patent. No extra-axial collections are present. There are no findings to suggest acute dural sinus thrombosis or acute territorial infarct. There are no calvarial fractures. A right maxillary sinus mucous retention cyst is unchanged. IMPRESSION: No acute intracranial findings. No change in appearance of the brain. ACT 112: Negative or not required by law. Electronically signed by: Sunil Mesa M.D. 01/30/2024 9:21 AM Head CTA 01/30/24 09:02 CTA ANGIOGRAPHY OF THE HEAD CLINICAL HISTORY: neuro deficit, acute stroke suspected COMPARISON STUDY: Head CT April 26, 2023. MRI of the brain February 23, 2022. TECHNIQUE: Helical axial images of the head were obtained following uneventful intravenous administration of 120 cc of Optiray. Sagittal and coronal reconstructions were viewed as well as maximal intensity projections on an independent 3-D workstation. Automated exposure control was utilized for the study. A dose lowering technique was utilized adhering to the principles of ALARA. FINDINGS: Extensive calcified plaque within the bilateral common carotid results in moderate stenosis of the bilateral cavernous carotids. There is no large vessel occlusion. 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 Posterior circulation is intact. Major dural sinuses are patent. The head CT will be reported separately. IMPRESSION: 1. No large vessel occlusion. No intracranial aneurysm. 2. 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 These are of doubtful significance. 3. 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 ACT 112: Negative or not required by law. Electronically signed by: Sunil Mesa M.D. 01/30/2024 9:38 AM Neck CTA 01/30/24 09:02 CT ANGIOGRAPHY OF THE NECK WITH CONTRAST CLINICAL HISTORY: neuro deficit, acute stroke suspected COMPARISON STUDY: Cervical spine CT June 15, 2022. Technique: CT angiography of the carotid and vertebral arteries was obtained using Optiray and 3D reconstruction on an independent workstation. NASCET criteria was utilized. Automated exposure control was utilized for the study. A dose lowering technique was utilized adhering to the principles of ALARA. CT DOSE: 1164.55 mGy.cm Findings: A 2.5 cm left lobe thyroid nodule is similar to CT of June 15, 2022. 5 mm left upper lobe pulmonary nodule is unchanged. There are postoperative findings consistent with C5-C6 anterior discectomy and fusion. The bilateral common carotid, cervical internal carotid and vertebral arteries are patent. There is tortuosity of the right common carotid artery. There is moderate plaque within the bilateral carotid bifurcations without significant stenosis. There is no aneurysm or dissection within the neck. IMPRESSION: Moderate plaque within the carotid bifurcations without significant stenosis. No stenosis or dissection within the bilateral common carotid, cervical internal carotid or vertebral arteries. ACT 112: Negative or not required by law. Electronically signed by: Sunil Mesa M.D. 01/30/2024 9:33 AM Brain MRI 01/30/24 10:26 MRI OF THE BRAIN WITHOUT AND WITH IV CONTRAST CLINICAL HISTORY: CVA workup. Visual disturbances. COMPARISON STUDY: MRI of the brain February 23, 2022. Head CT and CTA of the head performed earlier today. TECHNIQUE: Utilizing a 1.5 Jenn magnet and dedicated coil, multiplanar, multiecho imaging of the brain was performed pre and postcontrast administration. IV administration of 7.5 mL of Gadavist contrast was uneventful. FINDINGS: There are no foci of restricted diffusion to suggest acute infarct. No acute intracranial hemorrhage, midline shift or mass effect is present. Moderate atrophy is again noted. Ventricular dilatation is related to atrophy and is unchanged since prior MRI. There is no intracranial mass or pathologic enhancement. Scattered white matter T2 hyperintense foci are similar to previous MRI and favor small vessel disease. Calvarial signal is normal. A mucous retention cyst within the right maxillary sinus is unchanged. Prominent perivascular space within left basal ganglia is unchanged. IMPRESSION: 1. No acute intracranial findings. 2. Moderate atrophy and small vessel disease. No significant change in appearance of the brain since MRI of February 23, 2022. ACT 112: Negative or not required by law. Electronically signed by: Sunil Mesa M.D. 01/30/2024 11:52 AM Discharge Plan Visit Data Chief Complaint: Stroke Alert Stated Complaint: STROKE ALERT ED Provider: Katya Armenta Discharge Problem: Stroke-like symptoms Patient Disposition: Admitted As Inpatient Discharge Instructions Interventions: ED Discharge Assessment Last Done: 01/30/24 11:08
--- NOTE | 2024-01-30 09:23 | CT Scan Report ---
CT OF THE HEAD WITHOUT CONTRAST CLINICAL HISTORY: neuro deficit, acute stroke suspected. Weakness. Blurry vision. COMPARISON STUDY: MRI of the brain February 23, 2022. Head CT April 26, 2023. TECHNIQUE: Helical axial images of the head were obtained without IV contrast. Automated exposure con trol was utilized for the study. A dose lowering technique was utilized adhering to the principles o f ALARA. FINDINGS: No acute intracranial hemorrhage, midline shift or mass effect is present. The ventricular system is stable. White matter hypodensities are unchanged and favor small vessel disease. A hypodens ity within left basal ganglia favors a prominent perivascular space. This is unchanged. The basal cis terns are patent. No extra-axial collections are present. There are no findings to suggest acute dura l sinus thrombosis or acute territorial infarct. There are no calvarial fractures. A right maxillary sinus mucous retention cyst is unchanged. IMPRESSION: No acute intracranial findings. No change in appearance of the brain. ACT 112: Negative or not required by law. Electronically signed by: Sunil Mesa M.D. 01/30/2024 9:21 AM
[2024-01-30] MEDS: LABETALOL HCL IV 5 MG/ML 20ML IV STA (09:26)
[2024-01-30] MEDS ORDERED: LABETALOL HCL IV 5 MG/ML 20ML IV PRN ×2 (09:29→15:52)
[2024-01-30 09:31] LABS: Basophils # (auto) 0.02 K/uL (0.00-0.20); Basophils % (auto) 0.3 %; Eosinophils # (auto) 0.14 K/uL (0.00-0.50); Eosinophils % (auto) 2.4 %; Hematocrit (blood only) 40.6 % (37.0-47.0); Hemoglobin 13.7 g/dl (12.0-16.0); Immature Granulocytes # (auto) 0.01 K/uL (0.01-0.20); Immature Granulocytes % (auto) 0.2 %; Lymphocytes # (auto) 0.96 K/uL (1.20-3.40); Lymphocytes % (auto) 16.5 %; Mean Corpuscular Hemoglobin 28.9 pg (25.0-34.0); Mean Corpuscular Hgb Conc 33.7 g/dL (32.0-36.0); Mean Corpuscular Volume 85.7 fL (80.0-100.0); Mean Platelet Volume 11.1 fL (9.4-12.4); Monocytes # (auto) 0.41 K/uL (0.11-0.59); Neutrophils # (auto) 4.28 K/uL (1.40-6.50); Neutrophils % (auto) 73.6 %; Platelet Count 232 K/uL (130-400); RDW Coefficient of Variation 13.5 % (11.5-14.5); RDW Standard Deviation 42.6 fL (36.4-46.3); Red Blood Count 4.74 M/uL (4.20-5.40); White Blood Count 5.82 K/ul (4.8-10.8)
[2024-01-30] MEDS: SODIUM CHLORIDE 0.9% 1,000 ML IV SCH (09:31)
--- NOTE | 2024-01-30 09:32 | XRay Report ---
XR chest 1V portable CLINICAL HISTORY: neuro deficit, acute stroke suspected COMPARISON STUDY: Chest CT December 19, 2023. Chest radiograph January 04, 2024. FINDINGS: There are postoperative findings within the cervical spine. An electronic device projects o josiah the chest. Lung volumes are normal. Lungs are clear. There is no pneumothorax or pleural effusion . Cardiomegaly is unchanged. Mediastinal contours are normal. There is no evidence for pulmonary yris a. Several calcified and noncalcified pleural plaques are present. A nodular density within the right midlung is unchanged. IMPRESSION: No acute cardiopulmonary findings. ACT 112: Negative or not required by law. Electronically signed by: Sunil Mesa M.D. 01/30/2024 9:30 AM
--- NOTE | 2024-01-30 09:34 | CT Scan Report ---
CT ANGIOGRAPHY OF THE NECK WITH CONTRAST CLINICAL HISTORY: neuro deficit, acute stroke suspected COMPARISON STUDY: Cervical spine CT June 15, 2022. Technique: CT angiography of the carotid and vertebral arteries was obtained using Optiray and 3D rec onstruction on an independent workstation. NASCET criteria was utilized. Automated exposure control was utilized for the study. A dose lowering technique was utilized adhering to the principles of ALA RA. CT DOSE: 1164.55 mGy.cm Findings: A 2.5 cm left lobe thyroid nodule is similar to CT of June 15, 2022. 5 mm left upper lobe pulmonary nodule is unchanged. There are postoperative findings consistent with C5-C6 anterior discec misty and fusion. The bilateral common carotid, cervical internal carotid and vertebral arteries are p atent. There is tortuosity of the right common carotid artery. There is moderate plaque within the bi lateral carotid bifurcations without significant stenosis. There is no aneurysm or dissection within the neck. IMPRESSION: Moderate plaque within the carotid bifurcations without significant stenosis. No stenosis or dissection within the bilateral common carotid, cervical internal carotid or vertebral arteries. ACT 112: Negative or not required by law. Electronically signed by: Sunil Mesa M.D. 01/30/2024 9:33 AM
[2024-01-30 09:36] LABS: iSTAT Hemoglobin 13.3 g/dl (12.0-16.0); iSTAT Ionized Calcium 1.18 mmol/l (1.12-1.32); iSTAT Potassium 4.1 mmol/L (3.3-5.0)
--- NOTE | 2024-01-30 09:40 | CT Scan Report ---
CTA ANGIOGRAPHY OF THE HEAD CLINICAL HISTORY: neuro deficit, acute stroke suspected COMPARISON STUDY: Head CT April 26, 2023. MRI of the brain February 23, 2022. TECHNIQUE: Helical axial images of the head were obtained following uneventful intravenous administr ation of 120 cc of Optiray. Sagittal and coronal reconstructions were viewed as well as maximal inten sity projections on an independent 3-D workstation. Automated exposure control was utilized for the study. A dose lowering technique was utilized adhering to the principles of ALARA. FINDINGS: Extensive calcified plaque within the bilateral common carotid results in moderate stenosis of the bilateral cavernous carotids. There is no large vessel occlusion. There is a tiny 3 mm aneury sm arising from the distal right cavernous carotid artery on image 107 of 260. There is a probable ti ny 2 mm aneurysm arising from the distal left cavernous carotid on image 108. Posterior circulation i s intact. Major dural sinuses are patent. The head CT will be reported separately. IMPRESSION: 1. No large vessel occlusion. No intracranial aneurysm. 2. 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 These are of doubtful significance. 3. Extensive calcified plaque within the bilateral cavernous carotids which results in moderate steno sis. ACT 112: Negative or not required by law. Electronically signed by: Sunil Mesa M.D. 01/30/2024 9:38 AM
[2024-01-30] MEDS: CLOPIDOGREL BISULFATE 300 MG TAB PO STA (09:51)
[2024-01-30] MEDS: ASPIRIN 81 MG ECTAB PO STA (09:52)
[2024-01-30 09:56] LABS: Albumin Level 3.4 gm/dl (3.4-5.0); Bilirubin,Total 0.6 mg/dl (0.2-1.0); Calcium 8.6 mg/dl (8.6-10.3); Magnesium 1.8 mg/dl (1.7-2.4); Partial Thromboplastin Ratio 0.9; Partial Thromboplastin Time 24 Seconds (21-31); Potassium 4.1 mmol/L (3.5-5.1); Prothrombin Time 10.7 Seconds (9.0-12.0)
[2024-01-30 10:02] LABS: Albumin Globulin Ratio 1.3 (0.9-2); BUN Creatinine Ratio 29.3 (10-20); Creatinine Clr Calc Pharmacy 48.2 ml/min; Globulin 2.6 gm/dl (2.5-4.0)
[2024-01-30 10:24] LABS: Troponin I High Sensitivity 6.2 pg/ml (0-14)
[2024-01-30 10:32] LABS: Appearance Urine Clear (Clear); Bilirubin Urine Negative (Negative); Blood Urine Negative (Negative); Color Urine Yellow; Glucose Urine UA Negative (Negative); Ketones Urine Negative (Negative); Leukocyte Esterase Urine Negative (Negative); Nitrite Urine Negative (Negative); Protein Urine Negative (Negative); Specific Gravity Urine 1.037 (1.000-1.030); Urobilinogen Urine Negative (Negative); pH Urine 5.5 (4.5-7.5)
--- NOTE | 2024-01-30 11:11 | History & Physical Report ---
Date of Service January 30, 2024 Assessment & Plan (1) Stroke-like symptoms: Plan: Onset of difficulties with vision and comprehension of words or reading newspaper starting day of arrival approximately 0700. Symptoms resolved since being brought to hospital; takes aspirin 81 mg daily. - Admit - Last known well 0700; symptoms resolved en route to hospital and not recurring - Hemodynamically stable, no current neurological deficits on exam - Telestroke recommending admission with workup- stroke score 0 - Neurochecks + NIHSS - CT head without acute intracranial findings, no change in appearance of the brain - CTA head/neck no large vessel occlusion, no intracranial aneurysm, tiny aneurysm arising from bilateral cavernous carotids measuring 3 mm, extensive calcified plaque within the bilateral cavernous carotids (moderate stenosis); neck with moderate plaque within the carotid bifurcation without significant stenosis, no stenosis or dissection within the bilateral common carotid, cervical internal carotid, or vertebral arteries - A1c (03/2023) at 5.3% - Lipid panel (03/2023) triglycerides 113, cholesterol 194, LDL 109, HDL 62 - Troponin 6.2 - EKG sinus rhythm with ? First-degree block, rate around 90 - Avoid hypovolemia and hypotension - Received Plavix 300mg + ASA 81mg in ED - Continue Plavix 75mg daily + ASA 81 mg daily - Consider addition of statin - Telemetry monitoring - 2D Echo Bubble pending - MRI brain no acute intracranial findings, moderate atrophy and small vessel disease, no significant change in appearance of the brain since MRI February 23, 2022 - Spoke w/ Dr. Emerson on the phone- Recommend evaluating lipids and starting statin, continue on DAPT. If stable, d/c 01/30. Appreciate neurology input + recs (2) Seasonal allergies: Plan: Complaints of "itchy eyes", ongoing - Loratadine 5 mg p.o. daily OTC- continue (3) Hypothyroidism: Plan: H/o hypothyroidism, stable - Most recent TSH 04/26/2023 @ 0.674 - On levothyroxine 100 mg p.o. 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 Goldberg Uses cane/walker for ambulation- PT/OT consult placed Dispo: Admit Diet: Regular VTE Prophylaxis: Low risk - Encourage ambulation at this time; consider chemical prophylaxis if prolonged stay Code: Full Admission and Anticipated Discharge Date Admission Date: 01/30/2024 History of Present Illness Chief Complaint: Visual abnormalities Primary Care Provider: Anali Paula MD 83-year-old female presenting difficulty reading the morning of arrival and feeling "weird". 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 Given Plavix 300 mg x 1 as well as aspirin 81 mg x 1. Patient is an 83-year-old female PMHx HTN, hypothyroidism, H/L malignant melanoma, tachycardia, renal insufficiency, and spinal stenosis presenting to the ED for difficulty reading in the a.m. Was walking her dog around 7 AM when she came back home and sat down and noted that her vision was abnormal, describing as more so as an inability to read and comprehend the words that were on her newspaper. Has had history of headaches past 2 days, but none on the day of arrival. States that the headaches are related to allergies as she has had itchy eyes for the past few days as well. States that she did not have any dizziness, syncope, or lightheadedness during this episode. Additionally no chest pain or shortness of breath. Associated symptoms include itchy eyes which she has been taking OTC allergy medications for. Denying any persisting symptoms at this time. Denies numbness/tingling, diplopia, loss of vision, or weakness in any extremities. States that she has never had this happen before. Does admit to a fall off of her toilet on Sunday, states that she believes she just slid off, but did not have any symptoms prior to or after this. No LOC. Only took levothyroxine this morning. Patient's son and daughter present in room at the time of visit. Please see Dr. Curtis's attestation for adjustments/additions to treatment plan. Allergies Allergy/AdvReac Type Severity Reaction Status Date / Time acetaminophen Allergy Severe HIVES Verified 01/30/24 10:17 duloxetine [From Cymbalta] Allergy Intermediate Rash and Unverified 01/21/24 07:59 itching on Abdomen sucralfate [From Carafate] AdvReac Severe Nausea Verified 01/21/24 07:59 tramadol AdvReac Intermediate upset Verified 01/21/24 07:59 stomach ondansetron AdvReac Unknown UPSET Verified 01/21/24 07:59 STOMACH Home Medications Medication Instructions Recorded Confirmed Type cholecalciferol (vitamin D3) 50 2,000 unit PO QAM 05/28/18 01/30/24 History mcg (2,000 unit) capsule (Vitamin D3) evlqkeqf-kbs-ajmdj acid 0.4 1 tab PO QAM 05/28/18 01/30/24 History mg-lycopene 300 mcg-lutein 250 mcg tablet (Centrum Silver) mecobalamin (vitamin B12) 1,000 1,000 mcg PO DAILY #90 tabs 09/11/22 01/30/24 Rx mcg chewable tablet loratadine 5 mg disintegrating 5 mg PO DAILY #90 tabs 06/20/23 01/30/24 Rx tablet (Allergy Relief (loratadine)) levothyroxine 100 mcg tablet 100 mcg PO QAM #90 tabs 07/17/23 01/30/24 Rx fluticasone propionate 50 2 spray intranasal DAILY PRN 08/31/23 01/30/24 Rx mcg/actuation nasal Allergy Symptoms #16 grams spray,suspension gabapentin 100 mg capsule 100 mg PO TID #90 caps 10/04/23 01/30/24 Rx pantoprazole 40 mg tablet,delayed See Rx Instructions .Route 01/07/24 01/30/24 Rx release .COMPLEX #90 tabs diclofenac sodium 75 mg 75 mg PO BID #60 tabs 01/21/24 01/30/24 Rx tablet,delayed release Past Med/Surg History Problem List Stroke-like symptoms (Acute) Facet arthropathy, lumbosacral Lumbago Lumbosacral spondylosis Neuroforaminal stenosis of lumbosacral spine Spinal stenosis of lumbar region with neurogenic claudication Multiple lung nodules on CT Right ankle injury Erosive gastritis Hematuria Renal insufficiency Low sodium levels Liver cyst Vitamin B12 deficiency Numbness and tingling of right face Status post placement of implantable loop recorder History of fusion of cervical spine Degenerative spondylolisthesis Tachycardia Nonsustained paroxysmal ventricular tachycardia Former cigarette smoker Elevated LDL cholesterol level Abnormal electrocardiogram GAFFNEY (dyspnea on exertion) Lumbar spinal stenosis Cervical spinal stenosis Falls frequently Thyroid nodule Acquired deviated nasal septum Chronic sinusitis of both maxillary sinuses Seasonal allergies H/O Malignant melanoma Headache Gait disturbance (Acute) S/p total knee replacement, bilateral (Acute) History of squamous cell carcinoma of skin (Acute) Hypertension (Acute) Hypothyroidism (Acute) Spinal stenosis (Acute) White coat syndrome with hypertension (Acute) Idiopathic polyneuropathy Sensorineural hearing loss of both ears Chronic back pain Medical History Anxiety Nonsustained paroxysmal supraventricular tachycardia Chills Abdominal pain Implantable loop recorder present 05/2022 [facility]- placed after syncopal episode, no issues since placed; follows w/ Dr Goldberg Itching r/t neruropathy; reason for duloxetine Hx of squamous cell carcinoma Hx of basal cell carcinoma Spinal stenosis GERD (gastroesophageal reflux disease) Peripheral vascular disease Chronic knee pain after total replacement of right knee joint History of blood transfusion post-op TKA (2007) Hip pain History of malignant melanoma ear and back- excision Leg length discrepancy Hypertension Hypothyroidism Osteoarthritis Degenerative disc disease Surgical History S/P revision of total knee right knee revision History of left hip replacement Left LIEN: 06/19/2018: SAB x 1 attempt at L3-L4 at [facility] History of cataract surgery BILATERAL History of adenoidectomy History of tonsillectomy Status post Mohs surgery History of thyroidectomy, subtotal 2/2 THYROID NODULE History of colonoscopy History of appendectomy History of total knee replacement BILATERAL Fusion of spine ACDF C4-C5 - Full ROM History of dilatation and curettage History of hysterectomy SWATI WITH BSO Hx of cholecystectomy Family History Mother Family history of diabetes mellitus Myocardial infarction Brother Prostate cancer Myocardial infarction Other Allergies Asthma Heart disease Hypertension No family history of adverse response to anesthesia No family history of bleeding disorder Stroke Denies family history of Ovarian cancer Breast cancer Colorectal cancer Social History Smoking Status: Former smoker Tobacco Type: Cigarettes Age Started Using Tobacco: 14; Age Quit Using Tobacco: 43; packs per day: 1; Second Hand Exposure: Yes (first was a smoker); Do You Dip or Chew Tobacco: No; Hx Alcohol Use: No Hx Substance Use: No Preferred Language: Bulgarian Communication Ability: Effective Visual Impairment: No Limitations Hearing Ability: Normal Can Runner Required: No Beliefs That Will Affect Care: None marital status: / Current Living Situation: Alone current occupational status: retired Other Information That Helps Us Care for You: No Feels Safe at Home: Yes Safety Concerns: Feels Safe At This Time Childhood Exposure to Second-Hand Smoke: No Dental Care, Regularly: Yes Physical Activity Frequency: Daily Seatbelt Use: always Sunscreen Use: Yes Assistive Devices: Cane Review of Systems Review of Systems: All systems reviewed & are unremarkable except as noted in Subjective Physical Exam Physical Exam: General: No acute distress, well developed. Skin: Warm and dry Head: Normocephalic, atraumatic Eyes: PERRL, conjunctivae clear, sclera non-icteric; EOM intact ENT: External ear and ear canal without swelling; nose atraumatic; fair dentition, tongue normal appearance, pharynx normal without tonsillar swelling or exudate Neck: Supple, no LAD Cardio: RRR, no M/G/R, S1 and S2 normal Resp: No respiratory distress, Lungs CTA in all lobes bilaterally, no wheezes, rales, or rhonchi Abdomen: Soft, symmetric, nontender; No masses or hepatosplenomegaly MSK: No deformities, full ROM throughout; pulses palpable and equal; no edema. Neuro: Awake, alert; Muscle strength 5/5 bilaterally in UE/LE; Sensation intact bilaterally; CN all intact- no facial droop, no extremity weakness, speech normal Psych: Appropriate mood and affect; good judgement and insight. Patient's daughter and son are in room at time of visit. Results & Data Results & Data Vital Signs (Past 12 Hours) Vital Signs Pulse Pulse Resp BP BP Pulse Ox O2 Del Method 01/30/24 10:30 167/95 H 01/30/24 10:18 79 21 100 Room Air 01/30/24 10:08 78 18 178/100 H 100 01/30/24 09:51 81 24 100 01/30/24 09:49 80 144/94 H 01/30/24 09:45 144/94 H 01/30/24 09:40 177/108 H 01/30/24 09:39 83 16 98 01/30/24 09:35 189/116 H 01/30/24 09:33 78 17 99 01/30/24 09:30 168/89 H 01/30/24 09:30 78 18 168/89 H 99 Room Air 01/30/24 09:29 83 01/30/24 09:27 83 18 98 01/30/24 09:26 91 H 178/112 H 01/30/24 09:25 178/112 H 01/30/24 09:24 95 H 16 98 01/30/24 09:18 94 H 22 96 01/30/24 09:16 192/109 H 01/30/24 09:10 100 H 20 192/109 H 96 Room Air 01/30/24 09:10 96 Room Air 01/30/24 09:06 96 H 16 192/109 H 97 Room Air Laboratory Results 01/30/24 01/30/24 01/30/24 10:05 09:24 09:20 WBC 5.82 RBC 4.74 Hgb 13.7 POC Hgb 13.3 Hct 40.6 POC Hct 39 MCV 85.7 MCH 28.9 MCHC 33.7 RDW Std Deviation 42.6 RDW Coeff of Loly 13.5 Plt Count 232 MPV 11.1 Immature Gran % (Auto) 0.2 Neut % (Auto) 73.6 Lymph % (Auto) 16.5 [place]ois % (Auto) 7.0 Eos % (Auto) 2.4 Baso % (Auto) 0.3 Neut # (Auto) 4.28 Lymph # (Auto) 0.96 L [place] # (Auto) 0.41 Eos # (Auto) 0.14 Baso # (Auto) 0.02 Immature Gran # (Auto) 0.01 PT 10.7 INR 1.0 APTT 24 PTT Ratio 0.9 POC Sodium 134 L Sodium 135 L POC Potassium 4.1 Potassium 4.1 POC Chloride 103 Chloride 106 Carbon Dioxide 24 POC Total CO2 22 L Anion Gap 5 POC Anion Gap 14.0 L POC BUN 26 H BUN 27 H Creatinine 0.92 POC Creatinine 1.0 Est Cr Clr Drug Dosing 48.2 eGFR 61.02 BUN/Creatinine Ratio 29.3 H Glucose 95 POC Glucose POC Glucose (other) 91 Calcium 8.6 POC Ioniz Calcium Ashish 1.18 Magnesium 1.8 Total Bilirubin 0.6 AST 20 ALT 17 Alkaline Phosphatase 88 Troponin I High Sens 6.2 Total Protein 6.0 Albumin 3.4 Globulin 2.6 Albumin/Globulin Ratio 1.3 Urine Color Yellow Urine Appearance Clear Urine pH 5.5 Ur Specific [place] 1.037 H Urine Protein Negative Urine Glucose (UA) Negative Urine Ketones Negative Urine Blood Negative Urine Nitrite Negative Urine Bilirubin Negative Urine Urobilinogen Negative Ur Leukocyte Esterase Negative Blood Type A Positive Antibody Screen NEGATIVE 01/30/24 09:19 WBC RBC Hgb POC Hgb Hct POC Hct MCV MCH MCHC RDW Std Deviation RDW Coeff of Loly Plt Count MPV Immature Gran % (Auto) Neut % (Auto) Lymph % (Auto) [place] % (Auto) Eos % (Auto) Baso % (Auto) Neut # (Auto) Lymph # (Auto) [place]ois # (Auto) Eos # (Auto) Baso # (Auto) Immature Gran # (Auto) PT INR APTT PTT Ratio POC Sodium Sodium POC Potassium Potassium POC Chloride Chloride Carbon Dioxide POC Total CO2 Anion Gap POC Anion Gap POC BUN BUN Creatinine POC Creatinine Est Cr Clr Drug Dosing eGFR BUN/Creatinine Ratio Glucose POC Glucose 93 POC Glucose (other) Calcium POC Ioniz Calcium Ashish Magnesium Total Bilirubin AST ALT Alkaline Phosphatase Troponin I High Sens Total Protein Albumin Globulin Albumin/Globulin Ratio Urine Color Urine Appearance Urine pH Ur Specific [place] Urine Protein Urine Glucose (UA) Urine Ketones Urine Blood Urine Nitrite Urine Bilirubin Urine Urobilinogen Ur Leukocyte Esterase Blood Type Antibody Screen Diagnostic Findings Chest X-Ray 01/30/24 09:02 XR chest 1V portable CLINICAL HISTORY: neuro deficit, acute stroke suspected COMPARISON STUDY: Chest CT December 19, 2023. Chest radiograph January 04, 2024. FINDINGS: There are postoperative findings within the cervical spine. An electronic device projects over the chest. Lung volumes are normal. Lungs are clear. There is no pneumothorax or pleural effusion. Cardiomegaly is unchanged. Mediastinal contours are normal. There is no evidence for pulmonary edema. Several calcified and noncalcified pleural plaques are present. A nodular density within the right midlung is unchanged. IMPRESSION: No acute cardiopulmonary findings. ACT 112: Negative or not required by law. Electronically signed by: Sunil Mesa M.D. 01/30/2024 9:[address] 01/30/24 09:02 CT OF THE HEAD WITHOUT CONTRAST CLINICAL HISTORY: neuro deficit, acute stroke suspected. Weakness. Blurry vision. COMPARISON STUDY: MRI of the brain February 23, 2022. Head CT April 26, 2023. TECHNIQUE: Helical axial images of the head were obtained without IV contrast. Automated exposure control was utilized for the study. A dose lowering technique was utilized adhering to the principles of ALARA. FINDINGS: No acute intracranial hemorrhage, midline shift or mass effect is present. The ventricular system is stable. White matter hypodensities are unchanged and favor small vessel disease. A hypodensity within left basal ganglia favors a prominent perivascular space. This is unchanged. The basal cisterns are patent. No extra-axial collections are present. There are no findings to suggest acute dural sinus thrombosis or acute territorial infarct. There are no calvarial fractures. A right maxillary sinus mucous retention cyst is unchanged. IMPRESSION: No acute intracranial findings. No change in appearance of the brain. ACT 112: Negative or not required by law. Electronically signed by: Sunil Mesa M.D. 01/30/2024 9:21 AM Head CTA 01/30/24 09:02 CTA ANGIOGRAPHY OF THE HEAD CLINICAL HISTORY: neuro deficit, acute stroke suspected COMPARISON STUDY: Head CT April 26, 2023. MRI of the brain February 23, 2022. TECHNIQUE: Helical axial images of the head were obtained following uneventful intravenous administration of 120 cc of Optiray. Sagittal and coronal reconstructions were viewed as well as maximal intensity projections on an independent 3-D workstation. Automated exposure control was utilized for the study. A dose lowering technique was utilized adhering to the principles of ALARA. FINDINGS: Extensive calcified plaque within the bilateral common carotid results in moderate stenosis of the bilateral cavernous carotids. There is no large vessel occlusion. 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 Posterior circulation is intact. Major dural sinuses are patent. The head CT will be reported separately. IMPRESSION: 1. No large vessel occlusion. No intracranial aneurysm. 2. 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 These are of doubtful significance. 3. 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 ACT 112: Negative or not required by law. Electronically signed by: Sunil Mesa M.D. 01/30/2024 9:38 AM Neck CTA 01/30/24 09:02 CT ANGIOGRAPHY OF THE NECK WITH CONTRAST CLINICAL HISTORY: neuro deficit, acute stroke suspected COMPARISON STUDY: Cervical spine CT June 15, 2022. Technique: CT angiography of the carotid and vertebral arteries was obtained using Optiray and 3D reconstruction on an independent workstation. NASCET criteria was utilized. Automated exposure control was utilized for the study. A dose lowering technique was utilized adhering to the principles of ALARA. CT DOSE: 1164.55 mGy.cm Findings: A 2.5 cm left lobe thyroid nodule is similar to CT of June 15, 2022. 5 mm left upper lobe pulmonary nodule is unchanged. There are postoperative findings consistent with C5-C6 anterior discectomy and fusion. The bilateral common carotid, cervical internal carotid and vertebral arteries are patent. There is tortuosity of the right common carotid artery. There is moderate plaque within the bilateral carotid bifurcations without significant stenosis. There is no aneurysm or dissection within the neck. IMPRESSION: Moderate plaque within the carotid bifurcations without significant stenosis. No stenosis or dissection within the bilateral common carotid, cervical internal carotid or vertebral arteries. ACT 112: Negative or not required by law. Electronically signed by: Sunil Mesa M.D. 01/30/2024 9:33 AM Code Status & VTE Plan Code Status Full VTE Prophylaxis Plan VTE Prophylaxis will be ordered: Yes Supervising Physician Co-Signing Physician Notes I personally saw and examined the patient. I independently reviewed the labs, EKG, imaging, problem list, medication list, past medical history and family history. I verified all clemons points and agree with Joesph Mittal PA-C with the following exceptions and/or additions: 83 year old female presents to the ER with receptive dysphasia. Thinks episode lasted between 10 minutes to one hour. Having problems with dry eyes although she could see fine at the time but couldn't interpret the words. O/E HS RRR, no murmurs, Chest CTAB, Abdo SNT, CN2-> 12 intact, right chronic foot drop, otherwise no extremity weakness or change in sensation, normal speech exam A/P TIA - ABCD2 score 3 low risk, aspirin and clopidogrel for 21 days then aspirin alone as discussed with neurology, will defer starting statin to rounding physician depending on lipid panel PG Care Time/CCT Total # of Minutes Spent Total Time Spent with Patient: Total time spent is greater than 50% in coordination of care (as documented) at patient's floor/unit and/or counseling patient: Coding Level of Care Code 00299 INT INP/OBS CARE 2/55MIN Diagnoses Stroke-like symptoms R29.90 Seasonal allergies J30.2 Hypothyroidism E03.9 H/O Malignant melanoma Z85.820 Idiopathic polyneuropathy G60.9 Time Spent (min) 65
[2024-01-30] MEDS: GADOBUTROL 65ML VIAL IV ONE (11:39)
--- NOTE | 2024-01-30 11:54 | Magnetic Resonance Report ---
MRI OF THE BRAIN WITHOUT AND WITH IV CONTRAST CLINICAL HISTORY: CVA workup. Visual disturbances. COMPARISON STUDY: MRI of the brain February 23, 2022. Head CT and CTA of the head performed earlier today. TECHNIQUE: Utilizing a 1.5 Jenn magnet and dedicated coil, multiplanar, multiecho imaging of the br ain was performed pre and postcontrast administration. IV administration of 7.5 mL of Gadavist contr ast was uneventful. FINDINGS: There are no foci of restricted diffusion to suggest acute infarct. No acute intracranial h emorrhage, midline shift or mass effect is present. Moderate atrophy is again noted. Ventricular dila tation is related to atrophy and is unchanged since prior MRI. There is no intracranial mass or patho logic enhancement. Scattered white matter T2 hyperintense foci are similar to previous MRI and favor small vessel disease. Calvarial signal is normal. A mucous retention cyst within the right maxillary sinus is unchanged. Prominent perivascular space within left basal ganglia is unchanged. IMPRESSION: 1. No acute intracranial findings. 2. Moderate atrophy and small vessel disease. No significant change in appearance of the brain since MRI of February 23, 2022. ACT 112: Negative or not required by law. Electronically signed by: Sunil Mesa M.D. 01/30/2024 11:52 AM
[2024-01-30] MEDS ORDERED: FLUTICASONE PROPIONATE NA SPR 16 GM BTL PRN (12:21)
[2024-01-30] MEDS: GABAPENTIN 100 MG CAP PO SCH (15:27)
[2024-01-30] MEDS: PANTOprazole 40 MG TAB PO SCH (15:27)
[2024-01-30] MEDS ORDERED: IBUPROFEN 200 MG/10 ML UDC PO PRN (15:29)
[2024-01-30] MEDS: IBUPROFEN 600 MG TAB PO ONE (15:41)
--- NOTE | 2024-01-30 16:50 | XCELERA ---
[id number]
[2024-01-30] MEDS: DICLOFENAC SODIUM 75 MG TABCR PO SCH (20:29)
[2024-01-31] MEDS: LEVOTHYROXINE SODIUM 100 MCG TABLET PO SCH (05:53)
[2024-01-31 06:12] LABS: Basophils # (auto) 0.03 K/uL (0.00-0.20); Basophils % (auto) 0.5 %; Eosinophils # (auto) 0.38 K/uL (0.00-0.50); Eosinophils % (auto) 6.1 %; Hemoglobin 12.9 g/dl (12.0-16.0); Immature Granulocytes # (auto) 0.02 K/uL (0.01-0.20); Immature Granulocytes % (auto) 0.3 %; Lymphocytes # (auto) 1.61 K/uL (1.20-3.40); Lymphocytes % (auto) 25.9 %; Mean Corpuscular Hemoglobin 29.3 pg (25.0-34.0); Mean Corpuscular Hgb Conc 33.9 g/dL (32.0-36.0); Mean Corpuscular Volume 86.2 fL (80.0-100.0); Mean Platelet Volume 12.1 fL (9.4-12.4); Monocytes # (auto) 0.52 K/uL (0.11-0.59); Monocytes % (auto) 8.4 %; Neutrophils # (auto) 3.65 K/uL (1.40-6.50); Neutrophils % (auto) 58.8 %; Platelet Count 222 K/uL (130-400); RDW Coefficient of Variation 13.5 % (11.5-14.5); RDW Standard Deviation 42.5 fL (36.4-46.3); Red Blood Count 4.41 M/uL (4.20-5.40); White Blood Count 6.21 K/ul (4.8-10.8)
[2024-01-31 06:28] LABS: Chol HDL Ratio 3.9 (0-5)
[2024-01-31 07:28] VITALS: RESP 18; TEMP 97.7
[2024-01-31 07:37] LABS: Estimated Average Glucose 105 mg/dl; Hemoglobin A1C 5.3 % (4.5-5.6)
[2024-01-31] MEDS: LORATADINE 10 MG TAB PO SCH (08:37)
[2024-01-31] MEDS: ASPIRIN 81 MG ECTAB PO SCH (08:37)
[2024-01-31] MEDS: CLOPIDOGREL BISULFATE 75 MG TAB PO SCH (08:37)
[2024-01-31 11:24] VITALS: BP 149/75; O2SAT 93
--- NOTE | 2024-01-31 12:00 | Discharge Summary ---
Discharge Summary Date of Service January 31, 2024 Principal Dx & Hospital Course #1 = Principal Diagnosis (1) Stroke-like symptoms: Her symptoms have completely resolved. Studies are negative for acute CVA. This appears to have been a TIA. No critical stenosis seen on imaging. She is now on DAPT therapy. Cardiac echo negative for shunt (2) Seasonal allergies: Stable. Continue loratadine (3) Hypothyroidism: Stable. 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 (5) Idiopathic polyneuropathy: Stable. Continue gabapentin Plan Home today, January 30, on dual antiplatelet therapy with aspirin and clopidogrel. Admission HPI Per Admitting Provider 83-year-old female presenting difficulty reading the morning of arrival and feeling "weird". 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 Given Plavix 300 mg x 1 as well as aspirin 81 mg x 1. Patient is an 83-year-old female PMHx HTN, hypothyroidism, H/L malignant melanoma, tachycardia, renal insufficiency, and spinal stenosis presenting to the ED for difficulty reading in the a.m. Was walking her dog around 7 AM when she came back home and sat down and noted that her vision was abnormal, describing as more so as an inability to read and comprehend the words that were on her newspaper. Has had history of headaches past 2 days, but none on the day of arrival. States that the headaches are related to allergies as she has had itchy eyes for the past few days as well. States that she did not have any dizziness, syncope, or lightheadedness during this episode. Additionally no chest pain or shortness of breath. Associated symptoms include itchy eyes which she has been taking OTC allergy medications for. Denying any persisting symptoms at this time. Denies numbness/tingling, diplopia, loss of vision, or weakness in any extremities. States that she has never had this happen before. Does admit to a fall off of her toilet on Sunday, states that she believes she just slid off, but did not have any symptoms prior to or after this. No LOC. Only took levothyroxine this morning. Patient's son and daughter present in room at the time of visit. Please see Dr. Curtis's attestation for adjustments/additions to treatment plan. Discharge Exam General-alert and oriented x3, no fever, no chills HEENT-head atraumatic and normocephalic, pupils equal and reactive to light, extraocular muscles intact Neck-no lymphadenopathy or thyromegaly, trachea midline Chest-clear to auscultation. No rales, wheezing or rhonchi Cardiac-regular rate and rhythm, normal S1 and S2 Abdomen-normal bowel sounds, no hepatosplenomegaly Extremities-no cyanosis, clubbing, or edema Neuro-cranial nerves II through XII intact, motor and sensory function within normal limits, strength symmetrical, no focal deficits Psych-normal affect, normal mood Discharge Plan Discharge Items Patient Disposition: Home - Self-Care Reason For Visit: TIA SX Discharge Diagnosis: Suspected TIA Activity: Resume your previous activity Non-emergency contact: Primary Care Provider Call non-emergency contact if: your symptoms worsen Follow-up/Referrals: Anali Paula MD [Primary Care Provider] - Diet: Regular Addtl Attending Provider Instructions: Take clopidogrel 75 mg once a day and aspirin 81 mg once a day. All other medications remain the same Pending Studies at Discharge: No Stand-Alone Forms: [facility] [employer], Smoking Cessation Medications and DC Order Prescriptions: New clopidogrel 75 mg Tablet 75 mg PO QAM Qty: 30 0RF aspirin 81 mg Tablet,Delayed Release (Dr/Ec) 81 mg PO DAILY Qty: 0 0RF Continued diclofenac sodium 75 mg tablet,delayed release (DR/EC) 75 mg PO BID Qty: 60 5RF levothyroxine 100 mcg tablet 100 mcg PO QAM Qty: 90 3RF fluticasone propionate 50 mcg/actuation spray,suspension 2 spray intranasal DAILY PRN (Reason: Allergy Symptoms) Qty: 16 3RF Rx Instructions: instill 2 sprays into each nostril once daily if needed for ALLERGY SYMPTOMS gabapentin 100 mg capsule 100 mg PO TID Qty: 90 2RF Rx Instructions: Unable to verify if pt is still taking this medication at this date/time. pantoprazole 40 mg tablet,delayed release (DR/EC) See Rx Instructions .ROUTE .COMPLEX Qty: 90 1RF Dose Instruction: TAKE 1 TABLET BY MOUTH EVERY DAY Rx Instructions: TAKE 1 TABLET BY MOUTH EVERY DAY mecobalamin (vitamin B12) 1,000 mcg tablet,chewable 1,000 mcg PO DAILY Qty: 90 3RF Rx Instructions: Unable to verify OTC meds at this date/time. Allergy Relief (loratadine) 5 mg tablet,disintegrating 5 mg PO DAILY Qty: 90 3RF Rx Instructions: Unable to verify OTC meds at this date/time. Centrum Silver 0.4-300-250 mg-mcg-mcg Tablet 1 tab PO QAM Patient Comments: 2 weeks ago Rx Instructions: Unable to verify OTC meds at this date/time. cholecalciferol (vitamin D3) [Vitamin D3] 2,000 unit Capsule 2,000 unit PO QAM Rx Instructions: Unable to verify OTC meds at this date/time. Discharge Orders: Discharge Order (Routine); Ordered 01/31/24 Ordered By: Ryan Feldman Admission Data Admit Date/Time: 01/30/24 10:46 Attending Provider: Ryan Feldman Admit Provider: Markus Curtis Primary Care Provider: Anali Paula V. Other Providers: Markus Curtis Hospital Stay Data Consultations 01/30/24 09:55 ED Decision to Admit Stat Diagnostic Imagining Performed 01/30/24 09:02 CT angio head w con Stat CT angio neck with con Stat CT head/brain wo con Stat 01/30/24 10:26 MRI Brain [MR brain wo/w con] Stat Pending Results Patient Have Any Pending Studies at Discharge: No Discharge Instructions Given to Patient (Per Discharging Provider) Take clopidogrel 75 mg once a day and aspirin 81 mg once a day. All other medications remain the same Total Time Total Time Spent Total Time Spent (In Minutes): 45 minutes Coding Level of Care Code 95079 INP/OBS DISCH >30 MIN Diagnoses Stroke-like symptoms R29.90 Seasonal allergies J30.2 Hypothyroidism E03.9 H/O Malignant melanoma Z85.820 Idiopathic polyneuropathy G60.9
[2024-01-31 12:37] VITALS: PULSE 76
--- NOTE | 2024-02-04 13:19 | Electrocardiogram Report ---
Test Reason : Blood Pressure : */* mmHG Vent. Rate : 93 BPM Atrial Rate : 93 BPM P-R Int : 220 ms QRS Dur : 72 ms QT Int : 378 ms P-R-T Axes : 45 -24 25 degrees QTcB Int : 469 ms Sinus rhythm with 1st degree A-V block Minimal voltage criteria for LVH, may be normal variant ( R in aVL ) Nonspecific ST abnormality Abnormal ECG When compared with ECG of 26-Apr-2023 07:55, OK interval has increased Confirmed by Bernard Torrez ([id number]) on 02/04/2024 1:18:59 PM Referred By: REFERRED SELF Confirmed By: Bernard Torrez
== END 2024-01-31 12:36 | disposition home or self-care (01) | DRG 69 ==
LOC: ED 09:04 → INTOOBSV 10:46 → SUATTDRO 10:46 → 2N 10:46